=== PATIENT | female | born 1950 | race Asian ===

== ENCOUNTER 2016-10-19 11:39 | Inpatient (IN) | payer MEDICARE ==
--- NOTE | 2016-10-19 13:41 | ER Document Report ---
ED Medical Screen (RME) <ERNESTO ABBASI - Last Filed: 10/19/16 13:45> - General Mode of Arrival: Ambulatory Information source: Patient TRAVEL OUTSIDE OF THE [place] IN LAST 30 DAYS: No - HPI Patient complains to provider of: Dizziness Onset: This morning Associated Symptoms: Other - see notes above <DOE CHAO - Last Filed: 10/19/16 14:13> <KERRI RIBEIRO - Last Filed: 10/19/16 14:25> - General Chief Complaint: Bloody Stools Stated Complaint: FALL LEFT HIP PAIN/DIZZY Time Seen by Provider: 10/19/16 13:19 Notes: 66 year old female with history of anemia and blood transfusions presents to the ED complaining of dizziness, black stool, and rectal bleeding that started this morning. Patient denies any vaginal bleeding, but complains of left hip pain that radiates to the left leg secondary to a fall 2 weeks ago. Patient reports that these bleeding episodes occur once a year and often results in a hospitalization. I have greeted and performed a rapid initial assessment of this patient. A comprehensive ED assessment and evaluation of the patient, analysis of test results and completion of the medical decision making process will be conducted by additional ED providers. (DOE CHAO) - Related Data Allergies/Adverse Reactions: propoxyphene napsylate [From Darvocet-N 100] Allergy (Unknown, Verified 11:55) coffee (Coffea arabica) [Coffee] Adverse Reaction (Intermediate, Verified 11:55) vomitting Past Medical History - General Information source: Patient - Past Medical History Cardiac Medical History: Reports: Hx Heart Attack, Hx Hypercholesterolemia, Hx Hypertension, Other - Anemia and blood transfusions Pulmonary Medical History: Reports: Hx Bronchitis, Hx Pneumonia Denies: Hx Tuberculosis Neurological Medical History: Denies: Hx Seizures Endocrine Medical History: Reports: Hx Diabetes Mellitus Type 1, Hx Diabetes Mellitus Type 2 Renal/ Medical History: Denies: Hx Peritoneal Dialysis GI Medical History: Reports: Hx Gastritis, Other - GI bleeds Musculoskeltal Medical History: Reports Hx Arthritis Past Surgical History: Reports: Hx Appendectomy, Hx Cardiac Catheterization, Hx Hysterectomy, Hx Tonsillectomy, Hx Tubal Ligation - Immunizations Hx Diphtheria, Pertussis, Tetanus Vaccination: No <DOE CHAO - Last Filed: 10/19/16 14:13> Review of Systems - Review of Systems Constitutional: No symptoms reported EENT: No symptoms reported Cardiovascular: See HPI, Dizziness Respiratory: No symptoms reported Gastrointestinal: See HPI, Black stools, Rectal bleeding Genitourinary: No symptoms reported Female Genitourinary: No symptoms reported. denies: Vaginal bleeding Musculoskeletal: No symptoms reported Skin: No symptoms reported Hematologic/Lymphatic: No symptoms reported Neurological/Psychological: No symptoms reported -: Yes All other systems reviewed and negative <DOE CHAO - Last Filed: 10/19/16 14:13> Physical Exam - General General appearance: Alert In distress: None - HEENT Head: Normocephalic, Atraumatic Eyes: Normal Extraocular movements intact: Yes Pupils: PERRL - Respiratory Respiratory status: No respiratory distress - Skin Skin Temperature: Warm Skin Moisture: Dry Skin Color: Pale <DOE CHAO - Last Filed: 10/19/16 14:13> Course <ERNESTO ABBASI - Last Filed: 10/19/16 13:45> - Laboratory Result Diagrams: 10/19/16 13:32 10/19/16 13:32 <DOE CHAO - Last Filed: 10/19/16 14:13> - Laboratory Result Diagrams: 10/19/16 13:32 10/19/16 13:32 <KERRI RIBEIRO - Last Filed: 10/19/16 14:25> - Re-evaluation Re-evalutation: 10/19/16 14:25 I personally performed the services described in the documentation, reviewed and edited the documentation which was dictated to the scribe in my presence, and it accurately records my words and actions. (KERRI RIBEIRO) - Vital Signs Vital signs: Temp Pulse Resp BP Pulse Ox 98.5 F 97 124/56 L 100 10/19/16 11:58 10/19/16 11:58 10/19/16 11:58 10/19/16 14:09 - Laboratory Laboratory results interpreted by me: 10/19/16 10/19/16 13:32 13:32 Urine Glucose (UA) >=500 H Ur Leukocyte Esterase TRACE H Crossmatch See Detail Scribe Documentation - Scribe Written by Scribe:: Wily Broussard, 10/19/2016 1411 acting as scribe for :: Cesilia <DOE CHAO - Last Filed: 10/19/16 14:13>
[2016-10-19] MEDS ORDERED: NORMAL SALINE 250 ML IV PRN ×2 (13:49)
[2016-10-19 14:06] LABS: APPEARANCE,URINE SLIGHTLY-CLOUDY; BILIRUBIN,URINE NEGATIVE (NEGATIVE); GLUCOSE, URINE >=500 mg/dL (NEGATIVE); KETONES,URINE NEGATIVE (NEGATIVE); LEUKOCYTE ESTERASE,URINE TRACE (NEGATIVE); NITRITE,URINE NEGATIVE (NEGATIVE); PROTEIN,URINE NEGATIVE (NEGATIVE); URINE SPECIFIC GRAVITY 1.027; UROBILINOGEN,URINE NEGATIVE mg/dL (<2.0)
--- NOTE | 2016-10-19 14:10 | RADIOLOGY REPORT (SQ) ---
EXAM DESCRIPTION: PELVIS AP COMPLETED DATE/TIME: 10/19/2016 2:02 pm REASON FOR STUDY: fall, pain COMPARISON: None. NUMBER OF VIEWS: One view TECHNIQUE: AP Pelvis LIMITATIONS: None. FINDINGS: MINERALIZATION: Normal. HIPS: No acute fracture or dislocation. No worrisome bone lesions. PELVIS AND SACRUM: No acute fracture or dislocation. No worrisome bone lesions. PUBIS AND ISCHIUM: No acute fracture. LOWER LUMBAR SPINE: No significant findings as visualized. SOFT TISSUES: No findings. OTHER: No other significant finding. IMPRESSION: NEGATIVE STUDY OF THE PELVIS. TECHNICAL DOCUMENTATION: JOB ID: [id number] [employer]- All Rights Reserved
--- NOTE | 2016-10-19 14:12 | RADIOLOGY REPORT (SQ) ---
EXAM DESCRIPTION: CHEST PA/LAT COMPLETED DATE/TIME: 10/19/2016 2:02 pm REASON FOR STUDY: fall, pain COMPARISON: 09/02/2014. EXAM PARAMETERS: NUMBER OF VIEWS: two views TECHNIQUE: Digital Frontal and Lateral radiographic views of the chest acquired. RADIATION DOSE: NA LIMITATIONS: none FINDINGS: LUNGS AND PLEURA: No opacities, masses or pneumothorax. No pleural effusion. MEDIASTINUM AND HILAR STRUCTURES: Left paratracheal mass unchanged. HEART AND VASCULAR STRUCTURES: Heart normal size. No evidence for failure. BONES: No acute findings. HARDWARE: None in the chest. OTHER: No other significant finding. IMPRESSION: LEFT PARATRACHEAL MASS APPARENTLY DUE TO THYROMEGALY (PREVIOUS THYROID ULTRASOUND 2012). NO ACUTE RADIOGRAPHIC FINDING IN THE CHEST. TECHNICAL DOCUMENTATION: JOB ID: [id number] [employer]- All Rights Reserved
[2016-10-19 14:14] LABS: HEMATOCRIT 18.1 % (36.0-47.0); HGB HCT DIFFERENCE -1.9; MEAN CORPUSCULAR HEMOGLOBIN 22.9 pg (27.0-33.4); MEAN CORPUSCULAR HGB CONC 29.8 g/dL (32.0-36.0); MEAN CORPUSCULAR VOLUME 77 fl (80-97); RED BLOOD COUNT 2.35 10^6/uL (3.72-5.28); RED CELL DISTRIBUTION WIDTH 21.4 % (11.5-14.0); WHITE BLOOD COUNT 7.1 10^3/uL (4.0-10.5)
[2016-10-19 14:24] LABS: HEMOGLOBIN 5.4 g/dL (12.0-15.5)
[2016-10-19] MEDS ORDERED: PANTOPRAZOLE SODIUM 40 MG VIAL IV ONE ×2 (14:29→23:09)
[2016-10-19 14:31] LABS: ALANINE AMINOTRANSFERASE 18 U/L (9-52); ALBUMIN 3.8 g/dL (3.5-5.0); ALKALINE PHOSPHATASE 165 U/L (38-126); ANION GAP 14 (5-19); ASPARTATE AMINO TRANSFERASE 16 U/L (14-36); BILIRUBIN,DIRECT 0.3 mg/dL (0.0-0.4); BILIRUBIN,TOTAL 0.3 mg/dL (0.2-1.3); BLOOD UREA NITROGEN 15 mg/dL (7-20); CALCIUM 9.1 mg/dL (8.4-10.2); CARBON DIOXIDE 21 mmol/L (22-30); CHLORIDE 102 mmol/L (98-107); CREATINE KINASE 21 U/L (30-135); CREATININE RESULT 0.44 mg/dL (0.52-1.25); POTASSIUM 4.8 mmol/L (3.6-5.0); SODIUM 136.8 mmol/L (137-145); TOTAL PROTEIN 6.9 g/dL (6.3-8.2)
--- NOTE | 2016-10-19 14:38 | ER Document Report ---
ED GI Bleed / Rectal Pain <GEMADAVIDKERRI IRMA - Last Filed: 10/19/16 16:28> - General Mode of Arrival: Ambulatory Information source: Patient TRAVEL OUTSIDE OF THE [place] IN LAST 30 DAYS: No <LUISAERNESTO THIBODEAUX - Last Filed: 10/19/16 19:10> - General Chief Complaint: Bloody Stools Stated Complaint: FALL LEFT HIP PAIN/DIZZY Time Seen by Provider: 10/19/16 13:19 Notes: 66-year-old female with a history of upper and lower GI bleed, diabetes fell 3 weeks ago and she started taking ibuprofen 400 mg twice a day for about a week due to the left hip pain. She then started getting dizzy with black discoloration to her stools on Sunday., Same symptoms she had with GI bleed in 2012 and 2014. She has seen Dr. Strickland in the past 2014. She took insulin until 2010. She was given metformin when she was discharged from [facility] 2014 and she took that prescription for 1 month. Since she has no primary care provider she did not get the medication prescription refilled so she has untreated hyperglycemia. (ERNESTO ABBASI) - Related Data Allergies/Adverse Reactions: propoxyphene napsylate [From Darvocet-N 100] Allergy (Unknown, Verified 11:55) coffee (Coffea arabica) [Coffee] Adverse Reaction (Intermediate, Verified 11:55) vomitting Past Medical History - General Information source: Patient - Social History Smoking Status: Current Every Day Smoker Frequency of alcohol use: None Drug Abuse: None Lives with: Alone Family History: Reviewed & Not Pertinent Patient has suicidal ideation: No Patient has homicidal ideation: No - Past Medical History Cardiac Medical History: Reports: Hx Heart Attack, Hx Hypercholesterolemia, Hx Hypertension, Other - Anemia and blood transfusions Pulmonary Medical History: Reports: Hx Bronchitis, Hx Pneumonia Endocrine Medical History: Reports: Hx Diabetes Mellitus Type 1, Hx Diabetes Mellitus Type 2 Renal/ Medical History: Denies: Hx Peritoneal Dialysis GI Medical History: Reports: Hx Gastritis, Other - diverticula on colonoscopy, duodenal ulcer last 2014, GI bleeds Musculoskeltal Medical History: Reports Hx Arthritis Past Surgical History: Reports: Hx Abdominal Surgery, Hx Appendectomy, Hx Cardiac Catheterization, Hx Hysterectomy, Hx Tonsillectomy, Hx Tubal Ligation - Immunizations Hx Diphtheria, Pertussis, Tetanus Vaccination: No Hx Pneumococcal Vaccination: 02/22/13 <ERNESTO ABBASI - Last Filed: 10/19/16 19:10> Review of Systems - Review of Systems Constitutional: No symptoms reported EENT: No symptoms reported Cardiovascular: No symptoms reported Respiratory: No symptoms reported Gastrointestinal: See HPI Genitourinary: No symptoms reported Female Genitourinary: No symptoms reported Musculoskeletal: No symptoms reported Skin: No symptoms reported Hematologic/Lymphatic: No symptoms reported Neurological/Psychological: See HPI <ERNESTO ABBASI - Last Filed: 10/19/16 19:10> Physical Exam - Vital signs Interpretation: Normal - General General appearance: Appears well, Alert - HEENT Head: Normocephalic, Atraumatic Eyes: Normal Conjunctiva: Normal Pupils: PERRL Pharynx: Normal Neck: Supple - Respiratory Respiratory status: No respiratory distress Chest status: Nontender Breath sounds: Normal Chest palpation: Normal - Cardiovascular Rhythm: Regular Heart sounds: Normal auscultation Murmur: No - Abdominal Inspection: Normal Distension: No distension Bowel sounds: Normal Tenderness: Nontender. No: Tender Organomegaly: No organomegaly - Rectal Stool: Heme positive. No: Black - Back Back: Normal, Nontender. No: CVA tenderness - Extremities General upper extremity: Normal inspection, Nontender, Normal color, Normal ROM , Normal temperature General lower extremity: Normal inspection, Nontender, Normal color, Normal ROM , Normal temperature, Normal weight bearing. No: Leelee's sign - Neurological Neuro grossly intact: Yes Cognition: Normal Orientation: AAOx4 [place] Coma Scale Eye Opening: Spontaneous [place] Coma Scale Verbal: Oriented [place] Coma Scale Motor: Obeys Commands Radhika Coma Scale Total: 15 Speech: Normal Motor strength normal: LUE, RUE, LLE, RLE Sensory: Normal - Psychological Associated symptoms: Normal affect, Normal mood - Skin Skin Temperature: Warm Skin Moisture: Dry Skin Color: Normal <ERNESTO ABBASI - Last Filed: 10/19/16 19:10> - Vital signs Vitals: Temp Pulse BP Pulse Ox 98.5 F 97 124/56 L 100 10/19/16 11:58 10/19/16 11:58 10/19/16 11:58 10/19/16 11:58 Course - Laboratory Result Diagrams: 10/19/16 13:32 10/19/16 13:32 <KERRI RIBEIRO - Last Filed: 10/19/16 16:28> - Laboratory Result Diagrams: 10/19/16 13:32 10/19/16 13:32 <ERNESTO ABBASI - Last Filed: 10/19/16 19:10> - Re-evaluation Re-evalutation: 10/19/16 14:34 dr. genao has seen the pt for upper gi bleed, ulcers in the past. I called to see if he would be willing to see the pt as consult with hosptiatlist admission , he said he is not chemical production technician for the ER tonight and would not be able to see her if she bleeds during the night. He will not consult. 10/19/16 14:[address] Shahid [facility], her glucose is 463. does not take any meds. glucose was 512 1 year ago when she was transferred to [facility] for lower gi bleed. Will order 1 L of name normal saline and will most likely need to be a hospitalist admit in [place] with a GI consult. xrays are negative 10/19/16 15:16 dr. go hospitalist at [facility] will accept the pt. Wants her to have 1 unit PRBC infused before the transport. Also add a lactic acid per her request. 10/19/16 15:26 dr. ribeiro has seen the pt. and signed the EMTALA. 10/19/16 17:45 [facility] again and they do not have a PICU bed yet the patient is almost on her first blood transfusion and another IV was started to Protonix 8 mg an hour IV infusion. 10/19/16 18:36 accucheck 189, lacitic acid 0.9 normal 10/19/16 18:46 pt eating apple sauce, 2nd prbc infusing 10/19/16 19:10 care transferred to Rigoberto [facility]. pt still waiting for bed assignment at [facility] PCU (ERNESTO ABBASI) - Vital Signs Vital signs: Temp Pulse Resp BP Pulse Ox 98.9 F 94 18 124/79 100 10/19/16 18:58 10/19/16 15:31 10/19/16 18:56 10/19/16 18:56 10/19/16 18:56 - Laboratory Laboratory results interpreted by me: 10/19/16 10/19/16 10/19/16 13:32 13:32 13:32 RBC 2.35 L Hgb 5.4 L Hct 18.1 L MCV 77 L MCH 22.9 L MCHC 29.8 L RDW 21.4 H Sodium 136.8 L Carbon Dioxide 21 L Creatinine 0.44 L Glucose 463 H* POC Glucose Alkaline Phosphatase 165 H Creatine Kinase 21 L Urine Glucose (UA) Ur Leukocyte Esterase Crossmatch See Detail 10/19/16 10/19/16 13:32 18:14 RBC Hgb Hct MCV MCH MCHC RDW Sodium Carbon Dioxide Creatinine Glucose POC Glucose 189 H Alkaline Phosphatase Creatine Kinase Urine Glucose (UA) >=500 H Ur Leukocyte Esterase TRACE H Crossmatch Discharge <KERRI RIBEIRO - Last Filed: 10/19/16 16:28> <ERNESTO ABBASI - Last Filed: 10/19/16 19:10> - Discharge Clinical Impression: Upper GI bleed Anemia Qualifiers: Anemia type: unspecified type Qualified Code(s): D64.9 - Anemia, unspecified
[2016-10-19 14:40] LABS: GLUCOSE 463 mg/dL (75-110)
[2016-10-19] MEDS ORDERED: NORMAL SALINE 1000 ML 1,000 ML IV ONE (14:44)
[2016-10-19 14:47] LABS: CREATINE KINASE MB < 0.22 ng/mL (<4.55); TROPONIN I < 0.012 ng/mL
[2016-10-19 15:04] LABS: BASOPHILS % (MANUAL) 0 % (0-2); EOSINOPHILS % (MANUAL) 1 % (0-6); LYMPHOCYTES % (MANUAL) 20 % (13-45); TOTAL CELLS COUNTED 100; TOXIC GRANULATION SLIGHT; TOXIC VACUOLATION PRESENT
[2016-10-19 15:06] LABS: ANISOCYTOSIS 2+; HYPOCHROMASIA 2+; OVALOCYTES 2+; POIKILOCYTOSIS 2+; POLYCHROMASIA SLIGHT; ROULEAUX SLIGHT
[2016-10-19] MEDS ORDERED: INSULIN REG, HUMAN 100 UNIT/ML 3 ML VIAL (PYX) SUBCUT ONE (15:20)
[2016-10-19] MEDS: PANTOPRAZOLE SODIUM 40 MG VIAL IV PRN (17:58)
[2016-10-19 21:29] LABS: ABSOLUTE BASOPHILS # (AUTO) 0.1 10^3/uL (0.0-0.2); ABSOLUTE EOSINOPHILS # (AUTO) 0.1 10^3/uL (0.0-0.6); ABSOLUTE LYMPHOCYTES (AUTO) 2.7 10^3/uL (0.5-4.7); ABSOLUTE MONOCYTES (AUTO) 0.6 10^3/uL (0.1-1.4); ABSOLUTE NEUT (AUTO) 4.8 10^3/uL (1.7-8.2); BASOPHILS % (AUTO) 1.2 % (0-2); HEMATOCRIT 25.5 % (36.0-47.0); HGB HCT DIFFERENCE -1.5; LYMPHOCYTES % (AUTO) 33.1 % (13-45); MEAN CORPUSCULAR HEMOGLOBIN 24.6 pg (27.0-33.4); MEAN CORPUSCULAR HGB CONC 31.3 g/dL (32.0-36.0); MEAN CORPUSCULAR VOLUME 79 fl (80-97); MONOCYTES % (AUTO) 6.8 % (3-13); RED BLOOD COUNT 3.23 10^6/uL (3.72-5.28); RED CELL DISTRIBUTION WIDTH 19.2 % (11.5-14.0); SEGMENTED NEUTROPHILS % (AUTO) 57.9 % (42-78); WHITE BLOOD COUNT 8.2 10^3/uL (4.0-10.5)
--- NOTE | 2016-10-19 22:31 | EKG REPORT ---
SEVERITY:- ABNORMAL ECG - SINUS RHYTHM ABNRM R PROG, CONSIDER ASMI OR LEAD PLACEMENT : Confirmed by: Deidre Hogan 19-Oct-2016 22:31:06
[2016-10-20] MEDS ORDERED: NORMAL SALINE 1000 ML 1,000 ML IV PRN ×2 (05:32→08:39)
[2016-10-20] MEDS: PANTOPRAZOLE SODIUM 40 MG VIAL IV PRN (05:46)
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
[2016-10-20] MEDS ORDERED: ACETAMINOPHEN 325 MG TABLET PO PRN (08:31)
[2016-10-20] MEDS ORDERED: ONDANSETRON HCL INJ/PF 4 MG/2 ML SDV IV PRN (08:31)
[2016-10-20] MEDS ORDERED: DEXTROSE 40% GEL 15 GM TUBE PO PRN ×2 (08:31)
[2016-10-20] MEDS ORDERED: GLUCAGON,HUMAN RECOMB 1 MG INJ SUBCUT PRN (08:31)
[2016-10-20] MEDS ORDERED: DEXTROSE 50%-WATER 25 GM/50 ML DISP.SYRIN IV PRN ×2 (08:31)
[2016-10-20 08:37] LABS: HEMATOCRIT 24.6 % (36.0-47.0); HGB HCT DIFFERENCE -1.8; MEAN CORPUSCULAR HEMOGLOBIN 24.7 pg (27.0-33.4); MEAN CORPUSCULAR HGB CONC 31.1 g/dL (32.0-36.0); MEAN CORPUSCULAR VOLUME 79 fl (80-97); RED CELL DISTRIBUTION WIDTH 19.6 % (11.5-14.0); WHITE BLOOD COUNT 6.5 10^3/uL (4.0-10.5)
[2016-10-20] MEDS ORDERED: PANTOPRAZOLE SODIUM 40 MG VIAL IV PRN (08:39)
[2016-10-20] MEDS ORDERED: FUROSEMIDE INJ/PF 40 MG/4 ML SDV IV PRN (08:42)
[2016-10-20 08:44] LABS: HEMOGLOBIN 7.6 g/dL (12.0-15.5)
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
[2016-10-20 10:02] LABS: ANION GAP 12 (5-19); BLOOD UREA NITROGEN 10 mg/dL (7-20); CALCIUM 8.7 mg/dL (8.4-10.2); CARBON DIOXIDE 18 mmol/L (22-30); CHLORIDE 109 mmol/L (98-107); CREATININE RESULT 0.44 mg/dL (0.52-1.25); GLUCOSE 163 mg/dL (75-110); POTASSIUM 4.1 mmol/L (3.6-5.0); SODIUM 138.8 mmol/L (137-145)
[2016-10-20] MEDS ORDERED: ONDANSETRON HCL INJ/PF 4 MG/2 ML SDV ONE (11:39)
[2016-10-20] MEDS ORDERED: NALOXONE HCL INJ/PF 0.4 MG/1 ML SDV ONE (11:40)
[2016-10-20] MEDS ORDERED: FLUMAZENIL INJ 0.5 MG/5 ML VIAL IV ONE (11:40)
[2016-10-20] MEDS ORDERED: GLYCOPYRROLATE INJ 0.4 MG/2 ML VIAL ONE (11:40)
[2016-10-20] MEDS ORDERED: EPINEPHRINE INJ 1 MG/10 ML DISP.SYRIN ONE (11:41)
[2016-10-20] MEDS ORDERED: GLUCAGON,HUMAN RECOMB 1 MG INJ ONE (11:41)
[2016-10-20] MEDS: MIDAZOLAM 2 MG/2 ML INJ ONE ×2 (13:10→13:16)
[2016-10-20] MEDS: FENTANYL CITRATE INJ/PF 100 MCG/2 ML AMPUL ONE ×2 (13:13→13:22)
--- NOTE | 2016-10-20 13:37 | Operative Report ---
Operative Report DATE OF SURGERY: 10/20/16 PREOPERATIVE DIAGNOSIS: Gastrointestinal bleed; history of duodenal ulcer POSTOPERATIVE DIAGNOSIS: 1. 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 2. Mild gastritis. 3. No active bleeding, clots identified OPERATION: 1. Esophagogastroduodenoscopy. 2. Mucosal biopsy gastric antrum for HOOD testing SURGEON: LETITIA WILDER ANESTHESIA: Moderate Sedation TISSUE REMOVED OR ALTERED: Mucosal biopsy COMPLICATIONS: None ESTIMATED BLOOD LOSS: None INTRAOPERATIVE FINDINGS: See below PROCEDURE: Patient was taken to the endoscopy suite for for [facility] where she was placed in a semirecumbent position. A second IV was initiated and IV conscious sedation was initiated. Surgical plan and surgical timeout conducted. Oral mouthpiece inserted, hypopharynx anesthetized, the flexible adult endoscope was advanced to the oropharynx, down the esophagus, into the stomach and then the duodenum. Patient tolerated this very well. Of note she was hypertensive during the procedure. The duodenum was unremarkable except for 3 or 4 very small nonbleeding AVMs. Photos were taken. There was no evidence of tumor stricture bleeding or ulcer in the duodenum. The scope was carefully brought back to the pylorus several times and again no evidence of ulceration bleeding stricture in this area. The stomach was grossly unremarkable. A random antral biopsy was taken with cold forceps device for HOOD testing There is no evidence of tumor stricture bleeding or polyp in the stomach The scope was brought back to the GE junction. The GE junction was at approximately 38 cm from the incisor. There is no evidence of distal esophagitis stricture or any other pathology. Scope was brought back to the rest the esophagus which was unremarkable. Patient procedure well. Scope was withdrawn. She remained hemodynamically stable. She will resume clear liquid diet and preoperative medications.
[2016-10-20] MEDS: DOCUSATE SODIUM 100 MG CAPSULE PO SCH ×2 (15:23→17:38)
[2016-10-20] MEDS: CEFTRIAXONE 1 GM/D5W RTU 50 ML IV SCH (15:23)
[2016-10-20] MEDS: NORMAL SALINE 100 ML with PANTOPRAZOLE SODIUM 80 MG IV PRN ×6 (15:24→23:19)
[2016-10-20 17:31] LABS: ABSOLUTE BASOPHILS # (AUTO) 0.1 10^3/uL (0.0-0.2); ABSOLUTE LYMPHOCYTES (AUTO) 1.8 10^3/uL (0.5-4.7); ABSOLUTE MONOCYTES (AUTO) 0.4 10^3/uL (0.1-1.4); ABSOLUTE NEUT (AUTO) 4.3 10^3/uL (1.7-8.2); EOSINOPHILS % (AUTO) 0.6 % (0-6); HEMOGLOBIN 9.1 g/dL (12.0-15.5); HGB HCT DIFFERENCE -1.7; LYMPHOCYTES % (AUTO) 26.7 % (13-45); MEAN CORPUSCULAR HEMOGLOBIN 25.2 pg (27.0-33.4); MEAN CORPUSCULAR HGB CONC 31.5 g/dL (32.0-36.0); MEAN CORPUSCULAR VOLUME 80 fl (80-97); RED BLOOD COUNT 3.63 10^6/uL (3.72-5.28); RED CELL DISTRIBUTION WIDTH 19.2 % (11.5-14.0); SEGMENTED NEUTROPHILS % (AUTO) 64.7 % (42-78); WHITE BLOOD COUNT 6.6 10^3/uL (4.0-10.5)
[2016-10-20] MEDS: INSULIN REG, HUMAN 100 UNIT/ML 3 ML VIAL (PYX) SUBCUT PRN ×2 (19:26→23:18)
[2016-10-20 21:00] LABS: HEMATOCRIT 25.8 % (36.0-47.0); HEMOGLOBIN 8.1 g/dL (12.0-15.5); HGB HCT DIFFERENCE -1.5; MEAN CORPUSCULAR HEMOGLOBIN 24.8 pg (27.0-33.4); MEAN CORPUSCULAR HGB CONC 31.5 g/dL (32.0-36.0); MEAN CORPUSCULAR VOLUME 79 fl (80-97); RED BLOOD COUNT 3.27 10^6/uL (3.72-5.28); RED CELL DISTRIBUTION WIDTH 19.2 % (11.5-14.0); WHITE BLOOD COUNT 5.9 10^3/uL (4.0-10.5)
[2016-10-21 01:06] LABS: HEMATOCRIT 25.5 % (36.0-47.0); HGB HCT DIFFERENCE -1.8; MEAN CORPUSCULAR HEMOGLOBIN 24.9 pg (27.0-33.4); MEAN CORPUSCULAR VOLUME 80 fl (80-97); RED BLOOD COUNT 3.17 10^6/uL (3.72-5.28); RED CELL DISTRIBUTION WIDTH 18.6 % (11.5-14.0); WHITE BLOOD COUNT 5.5 10^3/uL (4.0-10.5)
[2016-10-21 01:11] LABS: HEMOGLOBIN 7.9 g/dL (12.0-15.5)
[2016-10-21 06:52] LABS: HEMATOCRIT 25.8 % (36.0-47.0); HEMOGLOBIN 8.3 g/dL (12.0-15.5); HGB HCT DIFFERENCE -0.9; MEAN CORPUSCULAR HEMOGLOBIN 25.3 pg (27.0-33.4); MEAN CORPUSCULAR VOLUME 79 fl (80-97); RED BLOOD COUNT 3.27 10^6/uL (3.72-5.28); RED CELL DISTRIBUTION WIDTH 19.2 % (11.5-14.0); WHITE BLOOD COUNT 5.2 10^3/uL (4.0-10.5)
[2016-10-21 07:09] LABS: ANION GAP 11 (5-19); BLOOD UREA NITROGEN 6 mg/dL (7-20); CALCIUM 8.4 mg/dL (8.4-10.2); CARBON DIOXIDE 19 mmol/L (22-30); CHLORIDE 112 mmol/L (98-107); CREATININE RESULT 0.42 mg/dL (0.52-1.25); GLUCOSE 180 mg/dL (75-110); SODIUM 142.1 mmol/L (137-145)
[2016-10-21] MEDS: DOCUSATE SODIUM 100 MG CAPSULE PO SCH (09:03)
[2016-10-21] MEDS: CEFTRIAXONE 1 GM/D5W RTU 50 ML IV SCH (09:03)
[2016-10-21] MEDS: INSULIN REG, HUMAN 100 UNIT/ML 3 ML VIAL (PYX) SUBCUT PRN ×2 (09:05→12:08)
--- NOTE | 2016-10-21 09:23 | PROGRESS NOTE E ---
Progress Note NAME: ASIA LOZOYA : 1950 AGE: 66Y DATE: 10/21/2016 ROOM: 401 SUBJECTIVE: This morning the patient denies any pain and no abdominal tenderness. She is tolerating clear liquids well. Her hemoglobin is stable at 8.3. The white count is normal at 5.2. She is asking to increase her diet. PLAN: I just ordered a bland diet for her and possibly could be discharged soon. Continue her on antacid regimen and follow up with a hemoglobin in about a week or 2. DICTATING PHYSICIAN: TRISTAN KIRKPATRICK M.D. [id number] PHY#: [id number] ID: [id number] JOB#: [id number] ACCT: [id number] cc: >
[2016-10-21 12:22] VITALS: BP 149/65
[2016-10-21] MEDS ORDERED: INSULIN REG, HUMAN 100 UNIT/ML 3 ML VIAL (PYX) SUBCUT ONE (13:00)
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
[2016-10-21] MEDS ORDERED: LANSOPRAZOLE 30 MG TAB.RAP.DR PO SCH (17:00)
== END 2016-10-21 15:38 | disposition home or self-care (01) | DRG 378 ==
LOC: ER 11:39 → EH 10-20 08:22 → OBSVTOIN 10-20 08:31 → 4N 10-20 10:01
PROC: 30233N1 Transfusion of Nonautologous Red Blood Cells into Peripheral Vein, Percutaneous Approach (ICD-10-PCS; 2016-10-19)
PROC: 30233N1 Transfusion of Nonautologous Red Blood Cells into Peripheral Vein, Percutaneous Approach (ICD-10-PCS; 2016-10-20)
PROC: 0DB68ZX Excision of Stomach, Via Natural or Artificial Opening Endoscopic, Diagnostic (ICD-10-PCS; principal; 2016-10-20 13:00)
DX: K31.811 Angiodysplasia of stomach and duodenum with bleeding (principal); N39.0 Urinary tract infection, site not specified; D50.9 Iron deficiency anemia, unspecified; E11.9 Type 2 diabetes mellitus without complications; K25.7 Chronic gastric ulcer without hemorrhage or perforation; I10 Essential (primary) hypertension; E78.5 Hyperlipidemia, unspecified; M19.90 Unspecified osteoarthritis, unspecified site; Z79.899 Other long term (current) drug therapy; F17.200 Nicotine dependence, unspecified, uncomplicated; I25.2 Old myocardial infarction; Z90.710 Acquired absence of both cervix and uterus; Z88.8 Allergy status to other drugs, medicaments and biological substances
CPT/HCPCS: 36415; 36430; 43239; 71020; 72170; 80048; 80053; 81001; 82272; 82550; 82553; 82962; 83036; 83605; 84484; 85025; 85027; 86850; 86900; 86901; 86920; 87086; 87088; 87186; 88305; 88342; 93005; 93010; 96361; 96374; 96376; 99285; J0171; J0696; J1610; J1815; J2250; J2310; J2405; J3010; J3490; J7030; P9016; S0164

== ENCOUNTER 2017-01-25 12:02 | Emergency (ER) | payer MEDICARE ==
--- NOTE | 2017-01-25 12:30 | ER Document Report ---
ED Medical Screen (RME) - General Chief Complaint: Dizziness Stated Complaint: DIZZINESS Time Seen by Provider: 01/25/17 12:27 Notes: Patient states that she has been dizzy for about 1 week. She states she has been feeling lightheaded. She states she has a history of anemia and has been transfused approximately 5 times. She states recently she has had black tarry stool. She has had tarry stools in the past. TRAVEL OUTSIDE OF THE [place] IN LAST 30 DAYS: No - Related Data Allergies/Adverse Reactions: propoxyphene napsylate [From Darvocet-N 100] Allergy (Unknown, Verified 11:55) coffee (Coffea arabica) [Coffee] Adverse Reaction (Intermediate, Verified 11:55) vomitting Past Medical History - Social History Chew tobacco use (# tins/day): No Frequency of alcohol use: Rare Drug Abuse: None - Past Medical History Cardiac Medical History: Reports: Hx Heart Attack, Hx Hypercholesterolemia, Hx Hypertension Pulmonary Medical History: Reports: Hx Bronchitis, Hx Pneumonia Denies: Hx Tuberculosis Neurological Medical History: Denies: Hx Seizures Endocrine Medical History: Reports: Hx Diabetes Mellitus Type 1, Hx Diabetes Mellitus Type 2 Renal/ Medical History: Denies: Hx Peritoneal Dialysis GI Medical History: Reports: Hx Gastritis Musculoskeltal Medical History: Reports Hx Arthritis Past Surgical History: Reports: Hx Abdominal Surgery, Hx Appendectomy, Hx Cardiac Catheterization, Hx Hysterectomy, Hx Tonsillectomy - adnoids, Hx Tubal Ligation - Immunizations Hx Diphtheria, Pertussis, Tetanus Vaccination: No Physical Exam - Vital signs Vitals: Temp Pulse Resp BP Pulse Ox 98.7 F 106 H 20 114/59 L 100 01/25/17 12:11 01/25/17 12:11 01/25/17 12:11 01/25/17 12:11 01/25/17 12:11 Course - Vital Signs Vital signs: Temp Pulse Resp BP Pulse Ox 98.7 F 106 H 20 114/59 L 100 01/25/17 12:11 01/25/17 12:11 01/25/17 12:11 01/25/17 12:11 01/25/17 12:11
[2017-01-25 13:30] LABS: APPEARANCE,URINE SLIGHTLY-CLOUDY; BILIRUBIN,URINE NEGATIVE (NEGATIVE); GLUCOSE, URINE >=500 mg/dL (NEGATIVE); KETONES,URINE 20 mg/dL (NEGATIVE); LEUKOCYTE ESTERASE,URINE NEGATIVE (NEGATIVE); NITRITE,URINE NEGATIVE (NEGATIVE); PROTEIN,URINE NEGATIVE (NEGATIVE); URINE SPECIFIC GRAVITY 1.025; UROBILINOGEN,URINE NEGATIVE mg/dL (<2.0)
[2017-01-25 14:34] LABS: HEMATOCRIT 15.7 % (36.0-47.0); MEAN CORPUSCULAR HEMOGLOBIN 23.5 pg (27.0-33.4); MEAN CORPUSCULAR HGB CONC 31.4 g/dL (32.0-36.0); MEAN CORPUSCULAR VOLUME 75 fl (80-97); RED CELL DISTRIBUTION WIDTH 20.1 % (11.5-14.0); WHITE BLOOD COUNT 8.5 10^3/uL (4.0-10.5)
[2017-01-25 14:42] LABS: ALANINE AMINOTRANSFERASE 25 U/L (9-52); ALBUMIN 4.1 g/dL (3.5-5.0); ALKALINE PHOSPHATASE 194 U/L (38-126); ANION GAP 15 (5-19); ASPARTATE AMINO TRANSFERASE 14 U/L (14-36); BILIRUBIN,DIRECT 0.2 mg/dL (0.0-0.4); BILIRUBIN,TOTAL 0.2 mg/dL (0.2-1.3); BLOOD UREA NITROGEN 19 mg/dL (7-20); CALCIUM 9.7 mg/dL (8.4-10.2); CARBON DIOXIDE 17 mmol/L (22-30); CHLORIDE 100 mmol/L (98-107); POTASSIUM 5.1 mmol/L (3.6-5.0); SODIUM 132.4 mmol/L (137-145); TOTAL PROTEIN 7.2 g/dL (6.3-8.2)
[2017-01-25 14:52] LABS: GLUCOSE 470 mg/dL (75-110)
[2017-01-25] MEDS ORDERED: NORMAL SALINE 1000 ML 1,000 ML IV ONE (14:58)
[2017-01-25] MEDS ORDERED: INSULIN REG, HUMAN 100 UNIT/ML 3 ML VIAL (PYX) IM ONE (14:59)
[2017-01-25] MEDS ORDERED: NORMAL SALINE 250 ML IV PRN (14:59)
[2017-01-25] MEDS ORDERED: PANTOPRAZOLE SODIUM 40 MG VIAL IV ONE (14:59)
[2017-01-25] MEDS ORDERED: PANTOPRAZOLE SODIUM 40 MG VIAL IV PRN (15:01)
[2017-01-25 15:26] LABS: BASOPHILS % (MANUAL) 0 % (0-2); EOSINOPHILS % (MANUAL) 0 % (0-6); LYMPHOCYTES % (MANUAL) 20 % (13-45); TOTAL CELLS COUNTED 100; TOXIC GRANULATION SLIGHT; TOXIC VACUOLATION PRESENT
[2017-01-25 15:29] LABS: ANISOCYTOSIS 2+; HYPOCHROMASIA 2+; MICROCYTOSIS 1+; OVALOCYTES 1+; POIKILOCYTOSIS SLIGHT; POLYCHROMASIA SLIGHT; TARGET CELLS SLIGHT; TEAR DROP CELLS SLIGHT
[2017-01-25] MEDS ORDERED: ONDANSETRON HCL INJ/PF 4 MG/2 ML SDV IV ONE (15:48)
[2017-01-25 15:52] LABS: HEMOGLOBIN 4.9 g/dL (12.0-15.5)
[2017-01-25 15:57] LABS: ARTERIAL BLOOD BASE EXCESS -4.1 mmol/L; ARTERIAL BLOOD O2 SATURATION 98.4 % (94-98)
--- NOTE | 2017-01-25 16:33 | ER Document Report ---
ED Dizziness/Weakness - General Mode of Arrival: Medic Information source: Patient, Relative TRAVEL OUTSIDE OF THE [place] IN LAST 30 DAYS: No <RUSS JOSEPH - Last Filed: 01/25/17 17:57> <ANTHONY URENA - Last Filed: 01/25/17 20:27> - General Chief Complaint: Dizziness Stated Complaint: DIZZINESS Time Seen by Provider: 01/25/17 12:27 Notes: Patient is a 66-year-old female who presents to the ER today for dark and tarry stools, dizziness 1 week. She Admits to some upper abdominal pain. She has a history of upper GI bleeds, gastric ulcers in the past having to have blood transfusions. She denies any vomiting but admits to some nausea. Patient is a diabetic and also has not had any of her medication because she has not had insurance to go to the doctor.She has not checked her sugar. ( RUSS JOSEPH) - Related Data Allergies/Adverse Reactions: propoxyphene napsylate [From Darvocet-N 100] Allergy (Unknown, Verified 11:55) coffee (Coffea arabica) [Coffee] Adverse Reaction (Intermediate, Verified 11:55) vomitting Past Medical History - Social History Smoking Status: Current Every Day Smoker Chew tobacco use (# tins/day): No Frequency of alcohol use: Rare Drug Abuse: None Family History: CAD, CVA, Hypertension Patient has suicidal ideation: No Patient has homicidal ideation: No - Past Medical History Cardiac Medical History: Reports: Hx Heart Attack, Hx Hypercholesterolemia, Hx Hypertension Pulmonary Medical History: Reports: Hx Bronchitis, Hx Pneumonia Denies: Hx Tuberculosis Neurological Medical History: Denies: Hx Seizures Endocrine Medical History: Reports: Hx Diabetes Mellitus Type 1, Hx Diabetes Mellitus Type 2 Renal/ Medical History: Denies: Hx Peritoneal Dialysis GI Medical History: Reports: Hx Gastritis Musculoskeltal Medical History: Reports Hx Arthritis Past Surgical History: Reports: Hx Abdominal Surgery, Hx Appendectomy, Hx Cardiac Catheterization, Hx Hysterectomy, Hx Tonsillectomy - adnoids, Hx Tubal Ligation - Immunizations Hx Diphtheria, Pertussis, Tetanus Vaccination: No Hx Pneumococcal Vaccination: 02/22/13 <RUSS JOSEPH - Last Filed: 01/25/17 17:57> - Vital signs Vitals: Temp Pulse Resp BP Pulse Ox 98.7 F 106 H 20 114/59 L 100 01/25/17 12:11 01/25/17 12:11 01/25/17 12:11 01/25/17 12:11 01/25/17 12:11 Course - Laboratory Result Diagrams: 01/25/17 14:07 01/25/17 14:07 <RUSS JOSEPH - Last Filed: 01/25/17 17:57> - Laboratory Result Diagrams: 01/25/17 14:07 01/25/17 14:07 <ANTHONY URENA - Last Filed: 01/25/17 20:27> - Re-evaluation Re-evalutation: 01/25/17 16:31 Dr. Thayer accepts pt for transfer to [facility] at this time for upper GI bleed and mild case of DKA. Patient has a hemoglobin of 4.9, stool occult was positive. Protonix, IV fluids, 2 units of packed red blood cells ordered at this time. Patient has a mildly elevated osmolality with a blood glucose of 470. Insulin was administered, 12 units. ABG has a pH of 7.48 and a PO2 of 109. (RUSS JOSEPH) 01/25/17 20:15 EMS here to transport patient. No current complaints. Vital signs stable. Stable for transport. (ANTHONY URENA) - Vital Signs Vital signs: Temp Pulse Resp BP Pulse Ox 99.0 F 93 20 150/78 H 100 01/25/17 19:55 01/25/17 19:55 01/25/17 19:55 01/25/17 19:55 01/25/17 19:55 - Laboratory Laboratory results interpreted by me: 01/25/17 01/25/17 01/25/17 13:11 14:07 14:07 RBC 2.10 L Hgb 4.9 L* Hct 15.7 L MCV 75 L MCH 23.5 L MCHC 31.4 L RDW 20.1 H Carbonic Acid ABG pH ABG pCO2 ABG pO2 ABG HCO3 ABG Total CO2 ABG O2 Saturation Sodium 132.4 L Potassium 5.1 H Carbon Dioxide 17 L Creatinine 0.50 L Glucose 470 H* POC Glucose Serum Osmolality Alkaline Phosphatase 194 H Urine Glucose (UA) >=500 H Urine Ketones 20 H Crossmatch 01/25/17 01/25/17 01/25/17 14:07 14:07 15:40 RBC Hgb Hct MCV MCH MCHC RDW Carbonic Acid 0.80 L ABG pH 7.48 H ABG pCO2 26.6 L ABG pO2 109.1 H ABG HCO3 19.2 L ABG Total CO2 20.0 L ABG O2 Saturation 98.4 H Sodium Potassium Carbon Dioxide Creatinine Glucose POC Glucose Serum Osmolality 302 H Alkaline Phosphatase Urine Glucose (UA) Urine Ketones Crossmatch See Detail 01/25/17 18:42 RBC Hgb Hct MCV MCH MCHC RDW Carbonic Acid ABG pH ABG pCO2 ABG pO2 ABG HCO3 ABG Total CO2 ABG O2 Saturation Sodium Potassium Carbon Dioxide Creatinine Glucose POC Glucose 154 H Serum Osmolality Alkaline Phosphatase Urine Glucose (UA) Urine Ketones Crossmatch Discharge <RUSS JOSEPH - Last Filed: 01/25/17 17:57> <ANTHONY URENA - Last Filed: 01/25/17 20:27> - Discharge Clinical Impression: Upper GI bleed Anemia Qualifiers: Anemia type: unspecified type Qualified Code(s): D64.9 - Anemia, unspecified Diabetes mellitus Qualifiers: Diabetes mellitus type: type 2 Diabetes mellitus complication status: with unspecified complications Diabetes mellitus stars analytical lead insulin use: without stars analytical lead use Qualified Code(s): E11.8 - Type 2 diabetes mellitus with unspecified complications Condition: Stable Disposition: [facility]
[2017-01-25] MEDS ORDERED: NORMAL SALINE 1000 ML 1,000 ML IV PRN (18:04)
[2017-01-25 19:56] VITALS: BP 150/78
[2017-01-26 14:20] LABS: PATH REVIEW PATHOLOGIST REVIEWED
== END 2017-01-25 19:55 | disposition short-term general hospital (02) ==
LOC: ER 12:02
DX: K92.2 Gastrointestinal hemorrhage, unspecified (principal); D64.9 Anemia, unspecified; E13.10 Other specified diabetes mellitus with ketoacidosis without coma; T50.906A Underdosing of unspecified drugs, medicaments and biological substances, initial encounter; Z91.120 Patient's intentional underdosing of medication regimen due to financial hardship; Z91.14 Patient's other noncompliance with medication regimen; R42 Dizziness and giddiness; R10.10 Upper abdominal pain, unspecified; R11.0 Nausea; I10 Essential (primary) hypertension; I25.2 Old myocardial infarction; F17.200 Nicotine dependence, unspecified, uncomplicated; Z88.5 Allergy status to narcotic agent; Z87.11 Personal history of peptic ulcer disease; Z90.49 Acquired absence of other specified parts of digestive tract
CPT/HCPCS: 99284; 96361; 96374; 86900; 86901; 36415; 36430; 86850; 82962; 82803; 83930; 85025; 82272; 80053; 81001; 86920; 36600; P9016; A9270; J2405; J7030; J1815; S0164

== ENCOUNTER → 2017-06-12 | Outpatient (CLI) | payer MEDICARE, MEDICAID ==
--- NOTE | 2017-06-12 16:36 | WOMENS IMAGING REPORT ---
EXAM DESCRIPTION: BILAT SCREENING MAMMO W/CAD COMPLETED DATE/TIME: 06/12/2017 2:08 pm REASON FOR STUDY: ROUTINE SCREENING; Z12.31 Z12.31 ENCNTR SCREEN MAMMOGRAM FOR MALIGNANT NEOPLASM O F BEN COMPARISON: None. TECHNIQUE: Standard craniocaudal and mediolateral oblique views of each breast recorded using Predictviaa l acquisition. LIMITATIONS: None. FINDINGS: Findings present which are benign by mammographic criteria. No suspicious masses, calcifi cations or architectural distortion. Pertinent benign findings: Benign bilateral breast parenchymal calcifications are present Read with the assistance of CAD. .[facility] - R2 Cenova Version 1.3 .[facility] Imaging - R2 Cenova Version 1.3 .[facility] - R2 Cenova Version 2.4 [place] [place] Cenova Version 2.4 .[facility] - R2 [employer] Version 9.2 Benign mammographic findings may include one or more of the following: Smooth masses, popcorn/rim/co arse calcifications, asymmetries, post-procedure changes, and lesions with long-standing stability. IMPRESSION: BENIGN MAMMOGRAPHIC FINDINGS. BIRADS 2 BREAST DENSITY: b. There are scattered areas of fibroglandular density. BIRAD: 2 BENIGN FINDING(S) RECOMMENDATION: ROUTINE SCREENING Please consider bilateral screening tomosynthesis in June 2018 COMMENT: The patient has been notified of the results by letter per MQSA requirements. Additional no tification policies are in place for contacting patient with suspicious or incomplete findings. Quality ID #[id number]: The [employer] recommends an annual screening mammogram for women aged 40 years or over. This facility utilizes a reminder system to ensure that all patients receive reminder letters, and/or direct phone calls for appointments. This includes reminders for routine scr eening mammograms, diagnostic mammograms, or other Breast Imaging Interventions when appropriate. Th is patient will be placed in the appropriate reminder system. The [employer] (ACR) has developed recommendations for screening MRI of the breast s in certain patient populations, to be used in conjunction with mammography. Breast MRI surveillanc e may be appropriate for women with more than 20% lifetime risk of developing breast cancer as deter mined by genetic testing, significant family history of the disease, or history of mantle radiation f or Hodgkins Disease. ACR Practice Guidelines 2008. TECHNICAL DOCUMENTATION: FINDING NUMBER: (1) ASSESSMENT: (1) JOB ID: [id number] [employer])- All Rights Reserved
== END ==
LOC: WI 13:19
PROVIDERS: ATTEND Internal Medicine
DX: Z12.31 Encounter for screening mammogram for malignant neoplasm of breast (principal)
CPT/HCPCS: 77067

== ENCOUNTER 2017-07-06 15:12 | Emergency (ER) | payer MEDICARE, MEDICAID ==
--- NOTE | 2017-07-06 16:28 | ER Document Report ---
ED Medical Screen (RME) - General Mode of Arrival: Ambulatory Information source: Patient TRAVEL OUTSIDE OF THE U.S. IN LAST 30 DAYS: No <ONEL GERARDO - Last Filed: 07/06/17 16:27> <MARIA ELENA KEN - Last Filed: 07/07/17 14:55> - General Chief Complaint: Dizziness Stated Complaint: DIZZINESS Time Seen by Provider: 07/06/17 16:27 Notes: This is a 67-year-old female with a history of diabetes, multiple GI bleeds in the past requiring transfusions, who presents to the emergency room with progressive weakness over the last several days in the setting of black stools. (ONEL GERARDO) - Related Data Allergies/Adverse Reactions: propoxyphene napsylate [From DarCOSMIC COLORt-N 100] Allergy (Unknown, Verified 11:55) aspirin Allergy (Verified 07/06/17 15:13) coffee (Coffea arabica) [Coffee] Adverse Reaction (Intermediate, Verified 11:55) vomitting Past Medical History - Social History Frequency of alcohol use: Rare - Past Medical History Cardiac Medical History: Reports: Hx Heart Attack, Hx Hypercholesterolemia, Hx Hypertension Pulmonary Medical History: Reports: Hx Bronchitis, Hx Pneumonia Denies: Hx Tuberculosis Neurological Medical History: Denies: Hx Seizures Endocrine Medical History: Reports: Hx Diabetes Mellitus Type 1, Hx Diabetes Mellitus Type 2 Renal/ Medical History: Denies: Hx Peritoneal Dialysis GI Medical History: Reports: Hx Gastritis Musculoskeltal Medical History: Reports Hx Arthritis Past Surgical History: Reports: Hx Abdominal Surgery, Hx Appendectomy, Hx Cardiac Catheterization, Hx Hysterectomy, Hx Tonsillectomy - adnoids, Hx Tubal Ligation - Immunizations Hx Diphtheria, Pertussis, Tetanus Vaccination: No <ONEL GERARDO - Last Filed: 07/06/17 16:27> - Vital signs Vitals: Temp Pulse Resp BP Pulse Ox 97.9 F 106 H 16 134/59 H 100 07/06/17 15:27 07/06/17 15:27 07/06/17 15:27 07/06/17 15:27 07/06/17 15:27 Course <ONEL GERARDO - Last Filed: 07/06/17 16:27> - Laboratory Result Diagrams: 07/06/17 18:00 07/06/17 18:00 <MARIA ELENA KEN - Last Filed: 07/07/17 14:55> - Re-evaluation Re-evalutation: 07/06/17 19:44 Patient reevaluated at 1944. She was advised of her hemoglobin at 5.8 and the need for transfer to [facility]. (MARIA ELENA KEN) - Vital Signs Vital signs: Temp Pulse Resp BP Pulse Ox 98.1 F 99 26 H 127/113 H 100 07/06/17 22:00 07/06/17 22:21 07/06/17 22:21 07/06/17 22:20 07/06/17 22:21 - Laboratory Laboratory results interpreted by me: 07/06/17 07/06/17 07/06/17 18:00 18:00 18:00 RBC 2.49 L Hgb 5.8 L Hct 18.7 L MCV 75 L MCH 23.3 L MCHC 31.1 L RDW 19.1 H Potassium 5.3 H Carbon Dioxide 20 L BUN 23 H Creatinine 0.48 L Glucose 272 H POC Glucose Total Bilirubin < 0.1 L Alkaline Phosphatase 133 H Crossmatch See Detail 07/06/17 21:28 RBC Hgb Hct MCV MCH MCHC RDW Potassium Carbon Dioxide BUN Creatinine Glucose POC Glucose 252 H Total Bilirubin Alkaline Phosphatase Crossmatch Doctor's Discharge <ONEL GERARDO - Last Filed: 07/06/17 16:27> <MARIA ELENA KEN - Last Filed: 07/07/17 14:55> - Discharge Clinical Impression: Upper GI bleed Condition: Fair Disposition: [facility] Referrals: FRANCI FLORES MD [Primary Care Provider] - Follow up as needed
[2017-07-06] MEDS ORDERED: NORMAL SALINE 500 ML IV ONE (18:23)
[2017-07-06 18:32] LABS: PROTHROMBIN TIME 12.8 SEC (11.4-15.4)
[2017-07-06 18:39] LABS: ABSOLUTE BASOPHILS # (AUTO) 0.1 10^3/uL (0.0-0.2); ABSOLUTE LYMPHOCYTES (AUTO) 1.7 10^3/uL (0.5-4.7); ABSOLUTE MONOCYTES (AUTO) 0.4 10^3/uL (0.1-1.4); ABSOLUTE NEUT (AUTO) 5.5 10^3/uL (1.7-8.2); BASOPHILS % (AUTO) 1.3 % (0-2); EOSINOPHILS % (AUTO) 0.5 % (0-6); HEMATOCRIT 18.7 % (36.0-47.0); LYMPHOCYTES % (AUTO) 22.2 % (13-45); MEAN CORPUSCULAR HEMOGLOBIN 23.3 pg (27.0-33.4); MEAN CORPUSCULAR HGB CONC 31.1 g/dL (32.0-36.0); MEAN CORPUSCULAR VOLUME 75 fl (80-97); MONOCYTES % (AUTO) 4.8 % (3-13); PLATELET COUNT 365 10^3/uL (150-450); RED BLOOD COUNT 2.49 10^6/uL (3.72-5.28); RED CELL DISTRIBUTION WIDTH 19.1 % (11.5-14.0); SEGMENTED NEUTROPHILS % (AUTO) 71.2 % (42-78); TOTAL CELLS COUNTED % (AUTO) 100 %; WHITE BLOOD COUNT 7.8 10^3/uL (4.0-10.5)
[2017-07-06 18:49] LABS: ALANINE AMINOTRANSFERASE 28 U/L (9-52); ALKALINE PHOSPHATASE 133 U/L (38-126); ANION GAP 17 (5-19); ASPARTATE AMINO TRANSFERASE 24 U/L (14-36); BLOOD UREA NITROGEN 23 mg/dL (7-20); CALCIUM 10.1 mg/dL (8.4-10.2); CARBON DIOXIDE 20 mmol/L (22-30); CHLORIDE 101 mmol/L (98-107); GLUCOSE 272 mg/dL (75-110); POTASSIUM 5.3 mmol/L (3.6-5.0); SODIUM 138.4 mmol/L (137-145); TOTAL PROTEIN 7.1 g/dL (6.3-8.2)
[2017-07-06 18:51] LABS: BILIRUBIN,TOTAL < 0.1 mg/dL (0.2-1.3)
[2017-07-06 18:59] LABS: HEMOGLOBIN 5.8 g/dL (12.0-15.5)
[2017-07-06] MEDS ORDERED: NORMAL SALINE 250 ML IV PRN (18:59)
[2017-07-06] MEDS ORDERED: PANTOPRAZOLE SODIUM 40 MG VIAL IV PRN (20:09)
[2017-07-06] MEDS ORDERED: METFORMIN HCL 500 MG TABLET PO ONE (21:45)
--- NOTE | 2017-07-06 21:45 | ER Document Report ---
ED General - General Chief Complaint: Dizziness Stated Complaint: DIZZINESS Time Seen by Provider: 07/06/17 16:27 Mode of Arrival: Ambulatory Information source: Patient, Transfer Record, [facility] Records Notes: 67-year-old female with a history of type 2 diabetes, upper GI bleed presents with complaint of dizziness that started 2 days prior to arrival. Patient states that she has had frequent episodes of feeling like she was going to " pass out". She denies any syncopal episodes. She also is complaining of weakness, fatigue and shortness of breath with minimal exertion. Patient denies headache, vision changes, nausea, vomiting, chest pain, abdominal pain. She does describe some black stools over the last few days. She was transferred to [facility] in January 2017 from [facility] after being found to have an upper GI bleed with a hemoglobin of 4.7. Patient was treated there but has not followed up with GI as recommended. At that time she stated she was told that she had a portion of her small bowel that was bleeding. TRAVEL OUTSIDE OF THE U.S. IN LAST 30 DAYS: No - HPI Onset: Other - 2 days prior to arrival Onset/Duration: Gradual Quality of pain: No pain Severity: None Pain Level: Denies Associated symptoms: Shortness of breath, Weakness Exacerbated by: Walking Relieved by: Denies Similar symptoms previously: Yes Recently seen / treated by doctor: No - Related Data Allergies/Adverse Reactions: propoxyphene napsylate [From Darvocet-N 100] Allergy (Unknown, Verified 11:55) aspirin Allergy (Verified 07/06/17 15:13) coffee (Coffea arabica) [Coffee] Adverse Reaction (Intermediate, Verified 11:55) vomitting Past Medical History - General Information source: Patient - Social History Smoking Status: Former Smoker Frequency of alcohol use: Rare Family History: CAD, CVA, Hypertension Patient has suicidal ideation: No Patient has homicidal ideation: No - Past Medical History Cardiac Medical History: Reports: Hx Heart Attack, Hx Hypercholesterolemia, Hx Hypertension Pulmonary Medical History: Reports: Hx Bronchitis, Hx Pneumonia Denies: Hx Tuberculosis Neurological Medical History: Denies: Hx Seizures Endocrine Medical History: Reports: Hx Diabetes Mellitus Type 1, Hx Diabetes Mellitus Type 2 Renal/ Medical History: Denies: Hx Peritoneal Dialysis GI Medical History: Reports: Hx Gastritis, Other - Perforated peptic ulcer and upper GI bleed Musculoskeltal Medical History: Reports Hx Arthritis Past Surgical History: Reports: Hx Abdominal Surgery, Hx Appendectomy, Hx Cardiac Catheterization, Hx Hysterectomy, Hx Tonsillectomy - adnoids, Hx Tubal Ligation - Immunizations Hx Diphtheria, Pertussis, Tetanus Vaccination: No Hx Pneumococcal Vaccination: 02/22/13 Review of Systems - Review of Systems Constitutional: See HPI Physical Exam - Vital signs Vitals: Temp Pulse Resp BP Pulse Ox 97.9 F 106 H 16 134/59 H 100 07/06/17 15:27 07/06/17 15:27 07/06/17 15:27 07/06/17 15:27 07/06/17 15:27 - General General appearance: Appears well, Alert - HEENT Head: Normocephalic, Atraumatic Eyes: Normal Conjunctiva: Other - Pale Pupils: PERRL - Rectal Stool: Heme positive - brown stool Course - Re-evaluation Re-evalutation: 07/06/17 22:00 67-year-old female with known prior upper GI bleed presents with complaint of dizziness that has been ongoing for 2 days. Upon arrival patient was placed on athletic monitor and vital signs were reviewed. Patient was found to be in sinus tachycardia, she is afebrile and not hypoxic. Patient does not appear toxic or dehydrated. She is in no acute distress. Exam significant for pale conjunctivae. Significant laboratory findings include positive stool and a hemoglobin of 5.8. Patient had similar symptoms in January 2017 when she was transferred to [facility] and diagnosed with a perforated ulcer and bleeding of my small bowel". Patient was placed on a Protonix drip and 2 units of PRBCs were transfused. She remained stable throughout her ED course. He was accepted by Dr. patel transferred in stable condition. - Vital Signs Vital signs: Temp Pulse Resp BP Pulse Ox 98.1 F 106 H 16 111/62 100 07/06/17 20:35 07/06/17 20:35 07/06/17 20:35 07/06/17 20:35 07/06/17 20:35 - Laboratory Result Diagrams: 07/06/17 18:00 07/06/17 18:00 Laboratory results interpreted by me: 07/06/17 07/06/17 07/06/17 18:00 18:00 18:00 RBC 2.49 L Hgb 5.8 L Hct 18.7 L MCV 75 L MCH 23.3 L MCHC 31.1 L RDW 19.1 H Potassium 5.3 H Carbon Dioxide 20 L BUN 23 H Creatinine 0.48 L Glucose 272 H POC Glucose Total Bilirubin < 0.1 L Alkaline Phosphatase 133 H Crossmatch See Detail 07/06/17 21:28 RBC Hgb Hct MCV MCH MCHC RDW Potassium Carbon Dioxide BUN Creatinine Glucose POC Glucose 252 H Total Bilirubin Alkaline Phosphatase Crossmatch Discharge - Discharge Clinical Impression: Upper GI bleed Condition: Fair Disposition: [facility] Admitting Provider: Sheree Unit Admitted: Medical Floor Referrals: FRANCI FLORES MD [Primary Care Provider] - Follow up as needed
--- NOTE | 2017-07-06 21:55 | EKG REPORT ---
SEVERITY:- ABNORMAL ECG - SINUS TACHYCARDIA PROBABLE LEFT ATRIAL ABNORMALITY BORDERLINE LEFT AXIS DEVIATION ANTERIOR INFARCT, AGE INDETERMINATE : Confirmed by: Jose Liang MD 06-Jul-2017 21:54:22
[2017-07-06 22:30] VITALS: BP 127/113
== END 2017-07-06 22:30 | disposition short-term general hospital (02) ==
LOC: ER 15:12
DX: K92.2 Gastrointestinal hemorrhage, unspecified (principal); R42 Dizziness and giddiness; R53.1 Weakness; R06.02 Shortness of breath; E11.9 Type 2 diabetes mellitus without complications; E78.00 Pure hypercholesterolemia, unspecified; I10 Essential (primary) hypertension; Z88.6 Allergy status to analgesic agent; I25.2 Old myocardial infarction; Z90.710 Acquired absence of both cervix and uterus
CPT/HCPCS: 93005; 99285; 96365; 86900; 86901; 36415; 36430; 86850; 82962; 85025; 85610; 82272; 80053; 86920; 93010; P9016; C9113; A9270; J7040; S0164

== ENCOUNTER 2017-09-09 12:13 | Emergency (ER) | payer MEDICARE, MEDICAID ==
--- NOTE | 2017-09-09 12:46 | ER Document Report ---
ED Medical Screen (RME) - General Chief Complaint: Dizziness Stated Complaint: DIZZINESS Time Seen by Provider: 09/09/17 12:40 Notes: 67-year-old female patient history of gastric and probable duodenal ulcers. Has been feeling dizzy when she stands up recently. She was transferred to [facility] on 07/06/2017 for upper GI bleed and anemia. She states that the black stools have not really cleared up since that admission to [facility]. She had endoscopy at that time showing what sounds like gastric and duodenal ulcers. I have greeted and performed a rapid initial assessment of this patient. A comprehensive ED assessment and evaluation of the patient, analysis of test results and completion of the medical decision making process will be conducted by additional ED providers. TRAVEL OUTSIDE OF THE [place] IN LAST 30 DAYS: No - Related Data Allergies/Adverse Reactions: propoxyphene napsylate [From Darvocet-N 100] Allergy (Unknown, Verified 12:17) aspirin Allergy (Verified 09/09/17 12:17) coffee (Coffea arabica) [Coffee] Adverse Reaction (Intermediate, Verified 12:17) vomitting Past Medical History - Social History Chew tobacco use (# tins/day): No Frequency of alcohol use: None Drug Abuse: None - Past Medical History Cardiac Medical History: Reports: Hx Heart Attack, Hx Hypercholesterolemia, Hx Hypertension Pulmonary Medical History: Reports: Hx Bronchitis, Hx Pneumonia Denies: Hx Tuberculosis Neurological Medical History: Denies: Hx Seizures Endocrine Medical History: Reports: Hx Diabetes Mellitus Type 1, Hx Diabetes Mellitus Type 2 Renal/ Medical History: Denies: Hx Peritoneal Dialysis GI Medical History: Reports: Hx Gastritis Musculoskeltal Medical History: Reports Hx Arthritis Past Surgical History: Reports: Hx Abdominal Surgery, Hx Appendectomy, Hx Cardiac Catheterization, Hx Hysterectomy, Hx Tonsillectomy - adnoids, Hx Tubal Ligation - Immunizations Hx Diphtheria, Pertussis, Tetanus Vaccination: No Physical Exam - Vital signs Vitals: Temp Pulse Resp BP Pulse Ox 98.7 F 97 16 109/55 L 100 09/09/17 12:30 09/09/17 12:30 09/09/17 12:30 09/09/17 12:30 09/09/17 12:30 Course - Vital Signs Vital signs: Temp Pulse Resp BP Pulse Ox 98.7 F 97 16 109/55 L 100 09/09/17 12:30 09/09/17 12:30 09/09/17 12:30 09/09/17 12:30 09/09/17 12:30
[2017-09-09 13:57] LABS: ABSOLUTE BASOPHILS # (AUTO) 0.1 10^3/uL (0.0-0.2); ABSOLUTE MONOCYTES (AUTO) 0.5 10^3/uL (0.1-1.4); ABSOLUTE NEUT (AUTO) 5.7 10^3/uL (1.7-8.2); BASOPHILS % (AUTO) 1.3 % (0-2); EOSINOPHILS % (AUTO) 0.4 % (0-6); HEMATOCRIT 20.8 % (36.0-47.0); LYMPHOCYTES % (AUTO) 23.8 % (13-45); MEAN CORPUSCULAR HEMOGLOBIN 24.3 pg (27.0-33.4); MEAN CORPUSCULAR HGB CONC 30.3 g/dL (32.0-36.0); MEAN CORPUSCULAR VOLUME 80 fl (80-97); MONOCYTES % (AUTO) 5.5 % (3-13); PLATELET COUNT 526 10^3/uL (150-450); RED BLOOD COUNT 2.59 10^6/uL (3.72-5.28); RED CELL DISTRIBUTION WIDTH 20.9 % (11.5-14.0); TOTAL CELLS COUNTED % (AUTO) 100 %; WHITE BLOOD COUNT 8.2 10^3/uL (4.0-10.5)
[2017-09-09 13:59] LABS: HEMOGLOBIN 6.3 g/dL (12.0-15.5)
[2017-09-09 14:02] LABS: PROTHROMBIN TIME 12.6 SEC (11.4-15.4)
[2017-09-09 14:08] LABS: ALANINE AMINOTRANSFERASE 14 U/L (9-52); ALBUMIN 4.3 g/dL (3.5-5.0); ALKALINE PHOSPHATASE 127 U/L (38-126); ANION GAP 15 (5-19); ASPARTATE AMINO TRANSFERASE 34 U/L (14-36); BILIRUBIN,DIRECT 0.3 mg/dL (0.0-0.4); BILIRUBIN,TOTAL 0.3 mg/dL (0.2-1.3); BLOOD UREA NITROGEN 20 mg/dL (7-20); CALCIUM 9.8 mg/dL (8.4-10.2); CARBON DIOXIDE 22 mmol/L (22-30); CHLORIDE 104 mmol/L (98-107); CREATINE KINASE 20 U/L (30-135); GLUCOSE 170 mg/dL (75-110); POTASSIUM 5.3 mmol/L (3.6-5.0); SODIUM 140.9 mmol/L (137-145); TOTAL PROTEIN 7.6 g/dL (6.3-8.2)
[2017-09-09] MEDS ORDERED: NORMAL SALINE 250 ML IV PRN ×2 (14:50)
[2017-09-09] MEDS ORDERED: PANTOPRAZOLE SODIUM 40 MG VIAL IV PRN (14:51)
--- NOTE | 2017-09-09 14:53 | ER Document Report ---
ED General - General Chief Complaint: Dizziness Stated Complaint: DIZZINESS Time Seen by Provider: 09/09/17 12:40 Mode of Arrival: Ambulatory Information source: Patient Notes: 67-year-old female with a history of hypertension, diabetes, known upper GI bleed presents with complaint of dizziness, black stools. Patient states dizziness has been ongoing for 2 weeks. She describes it as feeling lightheaded and as if she was going to pass out. Patient reports that she has had consistent black stools since discharge from [facility] in July 2017 after undergoing endoscopy which showed a bleeding peptic ulcer and a "bleed in my small intestine". She again has not followed up with GI due to transportation issues. Patient admits to associated shortness of breath. TRAVEL OUTSIDE OF THE [place] IN LAST 30 DAYS: No - HPI Onset/Duration: Gradual Quality of pain: No pain Exacerbated by: Standing, Walking Relieved by: Remaining still Similar symptoms previously: Yes Recently seen / treated by doctor: Yes - Dr. Dang - Related Data Allergies/Adverse Reactions: propoxyphene napsylate [From Darvocet-N 100] Allergy (Unknown, Verified 12:17) aspirin Allergy (Verified 09/09/17 12:17) coffee (Coffea arabica) [Coffee] Adverse Reaction (Intermediate, Verified 12:17) vomitting Past Medical History - General Information source: Patient - Social History Smoking Status: Former Smoker Chew tobacco use (# tins/day): No Frequency of alcohol use: None Drug Abuse: None Family History: CAD, CVA, Hypertension Patient has suicidal ideation: No Patient has homicidal ideation: No - Past Medical History Cardiac Medical History: Reports: Hx Heart Attack, Hx Hypercholesterolemia, Hx Hypertension Pulmonary Medical History: Reports: Hx Bronchitis, Hx Pneumonia Denies: Hx Tuberculosis Neurological Medical History: Denies: Hx Seizures Endocrine Medical History: Reports: Hx Diabetes Mellitus Type 1, Hx Diabetes Mellitus Type 2 Renal/ Medical History: Denies: Hx Peritoneal Dialysis GI Medical History: Reports: Hx Gastritis Musculoskeltal Medical History: Reports Hx Arthritis Past Surgical History: Reports: Hx Abdominal Surgery, Hx Appendectomy, Hx Cardiac Catheterization, Hx Hysterectomy, Hx Tonsillectomy - adnoids, Hx Tubal Ligation - Immunizations Hx Diphtheria, Pertussis, Tetanus Vaccination: No Hx Pneumococcal Vaccination: 02/22/13 Review of Systems - Review of Systems Notes: Patient denies fever, chills, nausea, vomiting, headache, ear pain, sore throat , cough, chest pain, abdominal pain, back pain, dysuria, hematuria, rash, SI/HI. Physical Exam - Vital signs Vitals: Temp Pulse Resp BP Pulse Ox 98.7 F 97 16 109/55 L 100 09/09/17 12:30 09/09/17 12:30 09/09/17 12:30 09/09/17 12:30 09/09/17 12:30 Interpretation: Normal, Hypotensive. No: Febrile - Notes Notes: PHYSICAL EXAMINATION: GENERAL: Well-appearing, well-nourished and in no acute distress. HEAD: Atraumatic, normocephalic. EYES: Pupils equal round and reactive to light, extraocular movements intact, conjunctiva are normal. ENT: Nares patent, oropharynx clear without exudates. Moist mucous membranes. NECK: Normal range of motion, supple without lymphadenopathy LUNGS: Breath sounds clear to auscultation bilaterally and equal. No wheezes rales or rhonchi. HEART: Regular rate and rhythm without murmurs ABDOMEN: Soft, nontender, nondistended abdomen. No guarding, no rebound. No masses appreciated. Rectal: Brown stool no active bleeding Musculoskeletal: Normal range of motion, no pitting or edema. No cyanosis. NEUROLOGICAL: Cranial nerves grossly intact. Normal speech, normal gait. Normal sensory, motor exams PSYCH: Normal mood, normal affect. SKIN: Warm, Dry, normal turgor, no rashes or lesions noted. Course - Re-evaluation Re-evalutation: Laboratory 09/09/17 09/09/17 09/09/17 13:20 13:20 13:20 WBC 8.2 RBC 2.59 L Hgb 6.3 L Hct 20.8 L MCV 80 MCH 24.3 L MCHC 30.3 L RDW 20.9 H Plt Count 526 H Seg Neutrophils % 69.0 Lymphocytes % 23.8 Monocytes % 5.5 Eosinophils % 0.4 Basophils % 1.3 Absolute Neutrophils 5.7 Absolute Lymphocytes 2.0 Absolute Monocytes 0.5 Absolute Eosinophils 0.0 Absolute Basophils 0.1 PT 12.6 INR 0.90 Sodium 140.9 Potassium 5.3 H Chloride 104 Carbon Dioxide 22 Anion Gap 15 BUN 20 Creatinine 0.56 Est GFR ( Amer) > 60 Est GFR (Non-Af Amer) > 60 Glucose 170 H Calcium 9.8 Total Bilirubin 0.3 Direct Bilirubin 0.3 Neonat Total Bilirubin Not Reportable Neonat Direct Bilirubin Not Reportable Neonat Indirect Bili Not Reportable AST 34 ALT 14 Alkaline Phosphatase 127 H Creatine Kinase 20 L Troponin I Total Protein 7.6 Albumin 4.3 Stool Occult Blood Blood Type Antibody Screen Crossmatch 09/09/17 09/09/17 09/09/17 13:20 14:44 15:17 WBC RBC Hgb Hct MCV MCH MCHC RDW Plt Count Seg Neutrophils % Lymphocytes % Monocytes % Eosinophils % Basophils % Absolute Neutrophils Absolute Lymphocytes Absolute Monocytes Absolute Eosinophils Absolute Basophils PT INR Sodium Potassium Chloride Carbon Dioxide Anion Gap BUN Creatinine Est GFR ( Amer) Est GFR (Non-Af Amer) Glucose Calcium Total Bilirubin Direct Bilirubin Neonat Total Bilirubin Neonat Direct Bilirubin Neonat Indirect Bili AST ALT Alkaline Phosphatase Creatine Kinase Troponin I < 0.012 Total Protein Albumin Stool Occult Blood POSITIVE Blood Type O POSITIVE Antibody Screen NEGATIVE Crossmatch See Detail 09/09/17 09/09/17 16:10 19:05 WBC 7.7 7.3 RBC 2.34 L 2.74 L Hgb 5.7 L 7.1 L Hct 18.6 L 22.0 L MCV 79 L 80 MCH 24.5 L 26.0 L MCHC 30.8 L 32.4 RDW 21.0 H 19.5 H Plt Count 456 H 453 H Seg Neutrophils % 62.7 Lymphocytes % 30.3 Monocytes % 5.1 Eosinophils % 0.4 Basophils % 1.5 Absolute Neutrophils 4.6 Absolute Lymphocytes 2.2 Absolute Monocytes 0.4 Absolute Eosinophils 0.0 Absolute Basophils 0.1 PT INR Sodium Potassium Chloride Carbon Dioxide Anion Gap BUN Creatinine Est GFR ( Amer) Est GFR (Non-Af Amer) Glucose Calcium Total Bilirubin Direct Bilirubin Neonat Total Bilirubin Neonat Direct Bilirubin Neonat Indirect Bili AST ALT Alkaline Phosphatase Creatine Kinase Troponin I Total Protein Albumin Stool Occult Blood Blood Type Antibody Screen Crossmatch 67-year-old female with a history of hypertension, diabetes, known upper GI bleed presents with complaint of dizziness, black stools. Patient states dizziness has been ongoing for 2 weeks. She describes it as feeling lightheaded and as if she was going to pass out. Patient reports that she has had consistent black stools since discharge from [facility] in July 2017 after undergoing endoscopy which showed a bleeding peptic ulcer and a "bleed in my small intestine". She again has not followed up with GI due to transportation issues. Patient admits to associated shortness of breath. Patient was seen by myself upon arrival. Vital signs were reviewed. Patient is afebrile, normotensive and not hypoxic. Patient does not appear toxic or dehydrated. They are in no acute distress. She does appear pale. Previous medical records and nursing notes reviewed. Significant findings include a hemoglobin of 6.3, occult positive stool. I did speak to [facility] who is familar with the patient and treated her in July for similar symptoms. Patient was accepted by Dr. Sage. 09/09/17 19:52 Patient reevaluated and is resting comfortably. She is receiving blood. Vital signs stable. She has been accepted by [facility] and we are awaiting a bed. 09/09/17 19:53 Repeat CBC pending 09/09/17 20:30 Repeat CBC shows a hemoglobin of 7.1 up from 6.3 after 1 unit of PRBCs. 09/09/17 21:15 Unit of PRBCs being administered. 09/10/17 01:[address] out to Dr Vaughn awaiting transfer to [facility]. Hgb uptrending. VSS. - Vital Signs Vital signs: Temp Pulse Resp BP Pulse Ox 98.5 F 97 16 163/69 H 100 09/09/17 22:01 09/09/17 12:30 09/09/17 23:01 09/09/17 23:01 09/09/17 23:01 - Laboratory Result Diagrams: 09/09/17 23:50 09/09/17 13:20 Laboratory results interpreted by me: 09/09/17 09/09/17 09/09/17 13:20 13:20 15:17 RBC 2.59 L Hgb 6.3 L Hct 20.8 L MCV MCH 24.3 L MCHC 30.3 L RDW 20.9 H Plt Count 526 H Potassium 5.3 H Glucose 170 H Alkaline Phosphatase 127 H Creatine Kinase 20 L Crossmatch See Detail 09/09/17 09/09/17 09/09/17 16:10 19:05 23:50 RBC 2.34 L 2.74 L 3.23 L Hgb 5.7 L 7.1 L 8.5 L Hct 18.6 L 22.0 L 26.1 L MCV 79 L MCH 24.5 L 26.0 L 26.3 L MCHC 30.8 L RDW 21.0 H 19.5 H 18.2 H Plt Count 456 H 453 H Potassium Glucose Alkaline Phosphatase Creatine Kinase Crossmatch Discharge - Discharge Clinical Impression: Upper GI bleed, Hyperglycemia, Dizziness Anemia Qualifiers: Anemia type: other cause Other causes of anemia: other cause, not classified Qualified Code(s): D64.89 - Other specified anemias Condition: Good Disposition: [facility]
[2017-09-09] MEDS ORDERED: ONDANSETRON HCL INJ/PF 4 MG/2 ML SDV IV ONE (15:39)
[2017-09-09] MEDS ORDERED: CEFTRIAXONE INJ 1000 MG VIAL IV ONE (15:42)
[2017-09-09 16:32] LABS: HEMATOCRIT 18.6 % (36.0-47.0); MEAN CORPUSCULAR HEMOGLOBIN 24.5 pg (27.0-33.4); MEAN CORPUSCULAR HGB CONC 30.8 g/dL (32.0-36.0); MEAN CORPUSCULAR VOLUME 79 fl (80-97); PLATELET COUNT 456 10^3/uL (150-450); RED BLOOD COUNT 2.34 10^6/uL (3.72-5.28); WHITE BLOOD COUNT 7.7 10^3/uL (4.0-10.5)
[2017-09-09 16:35] LABS: HEMOGLOBIN 5.7 g/dL (12.0-15.5)
--- NOTE | 2017-09-09 19:10 | EKG REPORT ---
SEVERITY:- NORMAL ECG - SINUS RHYTHM : Confirmed by: Deidre Hogan 09-Sep-2017 19:08:49
[2017-09-09 19:49] LABS: ABSOLUTE BASOPHILS # (AUTO) 0.1 10^3/uL (0.0-0.2); ABSOLUTE LYMPHOCYTES (AUTO) 2.2 10^3/uL (0.5-4.7); ABSOLUTE MONOCYTES (AUTO) 0.4 10^3/uL (0.1-1.4); ABSOLUTE NEUT (AUTO) 4.6 10^3/uL (1.7-8.2); BASOPHILS % (AUTO) 1.5 % (0-2); EOSINOPHILS % (AUTO) 0.4 % (0-6); LYMPHOCYTES % (AUTO) 30.3 % (13-45); MEAN CORPUSCULAR HGB CONC 32.4 g/dL (32.0-36.0); MEAN CORPUSCULAR VOLUME 80 fl (80-97); MONOCYTES % (AUTO) 5.1 % (3-13); PLATELET COUNT 453 10^3/uL (150-450); RED BLOOD COUNT 2.74 10^6/uL (3.72-5.28); RED CELL DISTRIBUTION WIDTH 19.5 % (11.5-14.0); SEGMENTED NEUTROPHILS % (AUTO) 62.7 % (42-78); TOTAL CELLS COUNTED % (AUTO) 100 %; WHITE BLOOD COUNT 7.3 10^3/uL (4.0-10.5)
[2017-09-09 19:53] LABS: HEMOGLOBIN 7.1 g/dL (12.0-15.5)
[2017-09-10 00:06] LABS: HEMATOCRIT 26.1 % (36.0-47.0); HEMOGLOBIN 8.5 g/dL (12.0-15.5); MEAN CORPUSCULAR HEMOGLOBIN 26.3 pg (27.0-33.4); RED BLOOD COUNT 3.23 10^6/uL (3.72-5.28); RED CELL DISTRIBUTION WIDTH 18.2 % (11.5-14.0)
[2017-09-10 00:10] LABS: MEAN CORPUSCULAR HGB CONC 32.6 g/dL (32.0-36.0); MEAN CORPUSCULAR VOLUME 81 fl (80-97); PLATELET COUNT 391 10^3/uL (150-450); WHITE BLOOD COUNT 6.4 10^3/uL (4.0-10.5)
[2017-09-10 01:38] VITALS: BP 166/82
[2017-09-10 01:46] LABS: AMORPHOUS SEDIMENT,URINE TRACE /HPF; APPEARANCE,URINE SLIGHTLY-CLOUDY; BILIRUBIN,URINE NEGATIVE (NEGATIVE); COLOR,URINE YELLOW; GLUCOSE, URINE NEGATIVE (NEGATIVE); KETONES,URINE NEGATIVE (NEGATIVE); LEUKOCYTE ESTERASE,URINE NEGATIVE (NEGATIVE); NITRITE,URINE NEGATIVE (NEGATIVE); PROTEIN,URINE NEGATIVE (NEGATIVE); URINE SPECIFIC GRAVITY 1.015; UROBILINOGEN,URINE NEGATIVE mg/dL (<2.0)
== END 2017-09-10 03:38 | disposition short-term general hospital (02) ==
LOC: ER 12:13
DX: R42 Dizziness and giddiness (principal); D64.89 Other specified anemias; E11.65 Type 2 diabetes mellitus with hyperglycemia; K92.2 Gastrointestinal hemorrhage, unspecified; R06.02 Shortness of breath; E78.00 Pure hypercholesterolemia, unspecified; I25.2 Old myocardial infarction; Z90.710 Acquired absence of both cervix and uterus
CPT/HCPCS: 93005; 99285; 96365; 96366; 96368; 86900; 86901; 36415; 36430; 86850; 82550; 85025; 85027; 85610; 82272; 80053; 81001; 84484; 86920; 93010; P9016; C9113; J0696; J2405; J7050; S0164

== ENCOUNTER 2017-12-08 17:59 | Emergency (ER) | payer MEDICARE, MEDICAID ==
[2017-12-08] MEDS ORDERED: NORMAL SALINE 1000 ML 1,000 ML IV ONE (18:30)
--- NOTE | 2017-12-08 18:36 | ER Document Report ---
ED Medical Screen (RME) - General Chief Complaint: Dizziness Stated Complaint: WEAK/DIZZY/SHORT OF BREATH Time Seen by Provider: 12/08/17 18:02 TRAVEL OUTSIDE OF THE [place] IN LAST 30 DAYS: No - HPI Notes: 12/08/17 18:31 Patient is a 67-year-old female with a history of diabetes (on insulin and metformin), hypertension, acute blood loss anemia who presents to the ED complaining of generalized weakness, feeling short of breath with exertion, and occasional dizziness over the last 3 weeks but worsening over the last 2-3 days. Patient states that she is also noticed dark colored stool. Patient was transferred to [facility] as well as to [facility] for upper GI bleed which she had an endoscopy for about 1-2mos ago. Pt states current symptoms are similar to when she was here and needed to be transfused and transferred. Pt states she has had about 8 transfusions over the last several years. Denies fever, LYNCH, URI , cough, wheeze, chest pain, syncope, palpitations, abd pain, n/v/d, dysuria, rash. I have treated and performed a rapid initial assessment of this patient. A comprehensive ED assessment and evaluation of the patient, analysis of test results and completion of medical decision making process will be conducted by additional ED providers. PHYSICAL EXAMINATION: GENERAL: Pt does appear pale. A&Ox4. Answers questions appropriately. LUNGS: Breath sounds clear to auscultation bilaterally and equal. No wheezes rales or rhonchi. HEART: Regular rate and rhythm without murmurs, rubs, gallops. ABDOMEN: Soft, nondistended abdomen. No guarding, no rebound. bowel sounds present. No CVA tenderness bilaterally. difficult to fully assess when sitting in a chair. Extremities: No cyanosis, clubbing, or edema b/l. NEUROLOGICAL: Normal speech, normal gait. PSYCH: Normal mood, normal affect. - Related Data Allergies/Adverse Reactions: propoxyphene napsylate [From Darvocet-N 100] Allergy (Unknown, Verified 17:59) aspirin Allergy (Verified 12/08/17 17:59) coffee (Coffea arabica) [Coffee] Adverse Reaction (Intermediate, Verified 17:59) vomitting Past Medical History - Past Medical History Cardiac Medical History: Reports: Hx Heart Attack, Hx Hypercholesterolemia, Hx Hypertension Pulmonary Medical History: Reports: Hx Bronchitis, Hx Pneumonia Denies: Hx Tuberculosis Neurological Medical History: Denies: Hx Seizures Endocrine Medical History: Reports: Hx Diabetes Mellitus Type 1, Hx Diabetes Mellitus Type 2 Renal/ Medical History: Denies: Hx Peritoneal Dialysis GI Medical History: Reports: Hx Gastritis Musculoskeltal Medical History: Reports Hx Arthritis Past Surgical History: Reports: Hx Abdominal Surgery, Hx Appendectomy, Hx Cardiac Catheterization, Hx Hysterectomy, Hx Tonsillectomy - adnoids, Hx Tubal Ligation - Immunizations Hx Diphtheria, Pertussis, Tetanus Vaccination: No Physical Exam - Vital signs Vitals: Temp Pulse Resp BP Pulse Ox 99.1 F 111 H 20 130/56 H 100 12/08/17 18:03 12/08/17 18:03 12/08/17 18:03 12/08/17 18:03 12/08/17 18:03 Course - Vital Signs Vital signs: Temp Pulse Resp BP Pulse Ox 99.1 F 111 H 20 130/56 H 100 12/08/17 18:03 12/08/17 18:03 12/08/17 18:03 12/08/17 18:03 12/08/17 18:03
--- NOTE | 2017-12-08 19:07 | ER Document Report ---
ED Dizziness/Weakness - General Information source: Patient TRAVEL OUTSIDE OF THE [place] IN LAST 30 DAYS: No <MIROSLAVA YOUNG - Last Filed: 12/08/17 21:19> <KERRI RIBEIRO - Last Filed: 12/09/17 01:27> - General Chief Complaint: Dizziness Stated Complaint: WEAK/DIZZY/SHORT OF BREATH Time Seen by Provider: 12/08/17 18:02 Notes: 67-year-old female that presents to the emergency department today with complaints of 1 week of dizziness. Patient states that she has a history of being anemic secondary to a GI bleed however they were "never able to find a bleed". Patient had an endoscopy and colonoscopy done approximately 5 weeks ago. Patient was initially transferred to [facility] and then sent to [facility] to further workup this GI bleed, patients states "they were never able to find a bleed". Patient states she has been lightheaded, has had diarrhea, and slight abdominal pain. Patient has not noticed any blood in her stool. Patient states she has had a partial hysterectomy but is not having any vaginal bleeding. (MIROSLAVA YOUNG) - Related Data Allergies/Adverse Reactions: propoxyphene napsylate [From Darvocet-N 100] Allergy (Unknown, Verified 17:59) aspirin Allergy (Verified 12/08/17 17:59) coffee (Coffea arabica) [Coffee] Adverse Reaction (Intermediate, Verified 17:59) vomitting Past Medical History - General Information source: Patient, [facility] - Social History Smoking Status: Former Smoker - Quit in april of 2017 Cigarette use (# per day): No Family History: Reviewed & Not Pertinent, CAD, CVA, Hypertension Patient has suicidal ideation: No Patient has homicidal ideation: No - Past Medical History Cardiac Medical History: Reports: Hx Heart Attack, Hx Hypercholesterolemia, Hx Hypertension Pulmonary Medical History: Reports: Hx Bronchitis, Hx Pneumonia Denies: Hx Tuberculosis Neurological Medical History: Denies: Hx Seizures Endocrine Medical History: Reports: Hx Diabetes Mellitus Type 1, Hx Diabetes Mellitus Type 2 Renal/ Medical History: Denies: Hx Peritoneal Dialysis GI Medical History: Reports: Hx Gastritis Musculoskeletal Medical History: Reports Hx Arthritis Past Surgical History: Reports: Hx Abdominal Surgery, Hx Appendectomy, Hx Cardiac Catheterization, Hx Hysterectomy, Hx Tonsillectomy - adnoids, Hx Tubal Ligation - Immunizations Hx Diphtheria, Pertussis, Tetanus Vaccination: No Hx Pneumococcal Vaccination: 02/22/13 <MIROSLAVA YOUNG - Last Filed: 12/08/17 21:19> Review of Systems - Review of Systems Constitutional: No symptoms reported EENT: No symptoms reported Cardiovascular: See HPI, Dizziness, Lightheaded Respiratory: No symptoms reported Gastrointestinal: See HPI, Abdominal pain, Diarrhea, Other - feels similar to how she felt when she was anemic due to GI bleed Genitourinary: No symptoms reported Female Genitourinary: No symptoms reported Musculoskeletal: No symptoms reported Skin: No symptoms reported Hematologic/Lymphatic: No symptoms reported Neurological/Psychological: No symptoms reported -: Yes All other systems reviewed and negative <MIROSLAVA YOUNG - Last Filed: 12/08/17 21:19> Physical Exam <MIROSLAVA YOUNG - Last Filed: 12/08/17 21:19> <KERRI RIBEIRO - Last Filed: 12/09/17 01:27> - Vital signs Vitals: Temp Pulse Resp BP Pulse Ox 99.1 F 111 H 20 130/56 H 100 12/08/17 18:03 12/08/17 18:03 12/08/17 18:03 12/08/17 18:03 12/08/17 18:03 - Notes Notes: Physical Exam: General: Alert, appears well. HEENT: Normocephalic. Atraumatic. PERRL. Extraocular movements intact. Oropharynx clear. Neck: Supple. Non-tender. Respiratory: No respiratory distress. Clear and equal breath sounds bilaterally. Cardiovascular: Tachycardic, regular rhythm. Abdominal: Mild epigastric tenderness to palpation. No distension. Normal Bowel Sounds. Back: Non-tender. No deformity or step off. Extremities: Moves all four extremities. Upper extremities: Normal inspection. Normal ROM. Lower extremities: Normal inspection. No edema. Normal ROM. Neurological: Normal cognition. AAOx4. Normal speech. Psychological: Normal affect. Normal Mood. Skin: Warm. Dry. Pale. (MIROSLAVA YOUNG) Course - Laboratory Result Diagrams: 12/08/17 19:16 12/08/17 19:16 <MIROSLAVA YOUNG - Last Filed: 12/08/17 21:19> - Laboratory Result Diagrams: 12/08/17 19:16 12/08/17 19:16 <KERRI RIBEIRO - Last Filed: 12/09/17 01:27> - Re-evaluation Re-evalutation: 12/08/17 19:58 Paged [facility] regarding potential transfer. Will page GI doctor and call back. 12/08/17 20:50 Patient updated regarding potential transfer 12/08/17 21:15 [facility], Dr. Finn accepts patient naqvi ED to ED transfer (MIROSLAVA YOUNG) 12/08/17 21:30 Patient is a 67-year-old female who comes in feeling dizzy, lightheaded and like her heart is racing. Patient was initially tachycardic. She is less so at rest. He has a history of GI bleed but states that bleeding source was not identified from recent endoscopy and colonoscopy. Patient has had Hemoccult stool multiple times and has Hemoccult positive stool this evening. She does not have any bright red blood per rectum. Denies any bleeding from anywhere else. Of note she has had a hysterectomy in the past. Patient states that her last episode of bright red blood was last week. She was not seen at that time. Given that there is no gastroenterology here this evening or anyone able to do endoscopy, patient will require transfer. She is most recently at [facility] and thus her she will be transferred to. Patient is agreeable to this plan. She has been transfused 2 units of packed red blood cells. Platelets are high. Her primary doctor had suggested that perhaps she needed to see a chemistry technologist. Patient will be sent to the emergency department at [facility]. 12/09/17 00:59 Transport is here to transfer patient to [facility]. AVSS. NAD. Stable for transfer. (KERRI RIBEIRO) - Vital Signs Vital signs: Temp Pulse Resp BP Pulse Ox 98 F 86 11 L 141/59 H 99 12/08/17 21:41 12/08/17 23:21 12/09/17 00:20 12/09/17 00:20 12/09/17 00:20 - Laboratory Laboratory results interpreted by me: 12/08/17 12/08/17 12/08/17 19:16 19:16 19:16 RBC 2.23 L Hgb 5.5 L Hct 17.9 L MCH 24.6 L MCHC 30.6 L RDW 23.1 H Plt Count 477 H Carbon Dioxide 21 L Creatinine 0.43 L Glucose 153 H Crossmatch See Detail Critical Care Note - Critical Care Note Total time excluding time spent on procedures (mins): 60 - Evaluation and management of tachycardia, GI bleed, symptomatic anemia, transfusion, consultation with specialist, coordination of transfer, counseling of patient, multiple re-evaluations <KERRI RIBEIRO - Last Filed: 12/09/17 01:27> Discharge <MIROSLAVA YOUNG - Last Filed: 12/08/17 21:19> <KERRI RIBEIRO - Last Filed: 12/09/17 01:27> - Discharge Clinical Impression: Upper GI bleed, Anemia requiring transfusions Condition: Stable Disposition: [facility] Referrals: FRANCI FLORES MD [Primary Care Provider] - Follow up as needed Scribe Attestation: 12/09/17 01:27 I personally performed the services described in the documentation, reviewed and edited the documentation which was dictated to the scribe in my presence, and it accurately records my words and actions. (KERRI RIBEIRO) Scribe Documentation - Scribe Written by Wily:: Wily Whitaker, 192112/08/2017 acting as scribe for :: Cesilia <MIROSLAVA YOUNG - Last Filed: 12/08/17 21:19>
--- NOTE | 2017-12-08 19:19 | RADIOLOGY REPORT (SQ) ---
EXAM DESCRIPTION: CHEST SINGLE VIEW COMPLETED DATE/TIME: 12/08/2017 6:44 pm REASON FOR STUDY: sob COMPARISON: Chest films 10/19/2016, 09/02/2014 EXAM PARAMETERS: NUMBER OF VIEWS: One view. TECHNIQUE: Single frontal radiographic view of the chest acquired. RADIATION DOSE: NA LIMITATIONS: None. FINDINGS: LUNGS AND PLEURA: No opacities, masses or pneumothorax. No pleural effusion. MEDIASTINUM AND HILAR STRUCTURES: Fullness in the left upper mediastinum at the thoracic inlet likely related to an enlarged left lobe thyroid. This is similar compared to prior studies. HEART AND VASCULAR STRUCTURES: Heart normal in size. Normal vasculature. BONES: No acute findings. HARDWARE: None in the chest. OTHER: No other significant finding. IMPRESSION: NO ACUTE RADIOGRAPHIC FINDING IN THE CHEST. TECHNICAL DOCUMENTATION: JOB ID: [id number] [email or web address]- All Rights Reserved Reading location - IP/workstation name: [email or web address]
[2017-12-08 19:34] LABS: ABSOLUTE BASOPHILS # (AUTO) 0.1 10^3/uL (0.0-0.2); ABSOLUTE EOSINOPHILS # (AUTO) 0.1 10^3/uL (0.0-0.6); ABSOLUTE LYMPHOCYTES (AUTO) 2.1 10^3/uL (0.5-4.7); ABSOLUTE MONOCYTES (AUTO) 0.4 10^3/uL (0.1-1.4); ABSOLUTE NEUT (AUTO) 3.6 10^3/uL (1.7-8.2); BASOPHILS % (AUTO) 1.5 % (0-2); EOSINOPHILS % (AUTO) 1.3 % (0-6); HEMATOCRIT 17.9 % (36.0-47.0); LYMPHOCYTES % (AUTO) 34.2 % (13-45); MEAN CORPUSCULAR HEMOGLOBIN 24.6 pg (27.0-33.4); MEAN CORPUSCULAR HGB CONC 30.6 g/dL (32.0-36.0); MEAN CORPUSCULAR VOLUME 80 fl (80-97); MONOCYTES % (AUTO) 5.7 % (3-13); PLATELET COUNT 477 10^3/uL (150-450); RED BLOOD COUNT 2.23 10^6/uL (3.72-5.28); RED CELL DISTRIBUTION WIDTH 23.1 % (11.5-14.0); SEGMENTED NEUTROPHILS % (AUTO) 57.3 % (42-78); TOTAL CELLS COUNTED % (AUTO) 100 %; WHITE BLOOD COUNT 6.3 10^3/uL (4.0-10.5)
[2017-12-08 19:37] LABS: HEMOGLOBIN 5.5 g/dL (12.0-15.5)
[2017-12-08] MEDS ORDERED: NORMAL SALINE 250 ML IV PRN ×2 (19:38)
[2017-12-08] MEDS ORDERED: PANTOPRAZOLE SODIUM 40 MG VIAL IV ONE (19:40)
[2017-12-08 19:41] LABS: INTERNATIONAL RATION (INR) 0.92; PROTHROMBIN TIME 12.9 SEC (11.4-15.4)
[2017-12-08 19:55] LABS: ALANINE AMINOTRANSFERASE 29 U/L (9-52); ALBUMIN 3.6 g/dL (3.5-5.0); ALKALINE PHOSPHATASE 101 U/L (38-126); ANION GAP 15 (5-19); ASPARTATE AMINO TRANSFERASE 23 U/L (14-36); BILIRUBIN,DIRECT 0.2 mg/dL (0.0-0.4); BILIRUBIN,TOTAL 0.2 mg/dL (0.2-1.3); BLOOD UREA NITROGEN 17 mg/dL (7-20); CALCIUM 9.5 mg/dL (8.4-10.2); CARBON DIOXIDE 21 mmol/L (22-30); CHLORIDE 105 mmol/L (98-107); GLUCOSE 153 mg/dL (75-110); POTASSIUM 4.9 mmol/L (3.6-5.0); SODIUM 141.2 mmol/L (137-145); TOTAL PROTEIN 6.6 g/dL (6.3-8.2)
[2017-12-08 20:21] LABS: NT PRO BNP 175 pg/mL (5-900); TROPONIN I < 0.012 ng/mL
[2017-12-09 01:47] VITALS: BP 142/60
--- NOTE | 2017-12-09 10:02 | EKG REPORT ---
SEVERITY:- ABNORMAL ECG - SINUS RHYTHM PROBABLE INFERIOR INFARCT, OLD : Confirmed by: Deidre Hogan 09-Dec-2017 10:02:28
== END 2017-12-09 01:50 | disposition short-term general hospital (02) ==
LOC: ER 17:59
DX: K92.2 Gastrointestinal hemorrhage, unspecified (principal); D64.9 Anemia, unspecified; R42 Dizziness and giddiness; R53.1 Weakness; R06.02 Shortness of breath; R19.7 Diarrhea, unspecified; R10.9 Unspecified abdominal pain; I10 Essential (primary) hypertension; E11.9 Type 2 diabetes mellitus without complications; Z88.5 Allergy status to narcotic agent; Z88.6 Allergy status to analgesic agent
CPT/HCPCS: 93005; 99291; 86900; 86901; 36415; 36430; 86850; 85025; 85610; 82272; 80053; 84484; 86920; 83880; 71045; 93010; P9016

== ENCOUNTER 2018-03-26 08:36 | Outpatient (CLI) | payer MEDICARE, MEDICAID ==
[2018-03-26] MEDS ORDERED: NORMAL SALINE 250 ML IV PRN (08:52)
[2018-03-26] MEDS ORDERED: FERRIC CARBOXYMALTOSE 750 MG in NORMAL SALINE 250 ML IV PRN (08:53)
[2018-03-26 09:37] VITALS: BP 115/70
== END 2018-03-26 10:40 | disposition home or self-care (01) ==
LOC: II 08:36 → 5TH 08:47 → II 10:40
PROVIDERS: ATTEND Internal Medicine
PROC: 3E02340 Introduction of Influenza Vaccine into Muscle, Percutaneous Approach (ICD-10-PCS; principal; 2018-03-26)
PROC: 3E033GC Introduction of Other Therapeutic Substance into Peripheral Vein, Percutaneous Approach (ICD-10-PCS; 2018-03-26)
DX: D50.8 Other iron deficiency anemias (principal); K90.9 Intestinal malabsorption, unspecified; Z23 Encounter for immunization
CPT/HCPCS: 90686; 96367; 96372; G0008; J7050; J1439; 90471; 96374

== ENCOUNTER 2018-04-02 08:44 | Outpatient (CLI) | payer MEDICARE, MEDICAID ==
[~2018-04-02 08:44] MED LIST: FERRIC CARBOXYMALTOSE 750 MG in NORMAL SALINE 250 ML IV PRN; NORMAL SALINE 250 ML IV PRN
[2018-04-02 09:51] VITALS: BP 126/67
== END 2018-04-02 10:42 | disposition home or self-care (01) ==
LOC: II 08:44 → 5TH 09:36 → II 10:42
PROVIDERS: ATTEND Internal Medicine
PROC: 3E033GC Introduction of Other Therapeutic Substance into Peripheral Vein, Percutaneous Approach (ICD-10-PCS; principal; 2018-04-02)
DX: D50.8 Other iron deficiency anemias (principal); K90.9 Intestinal malabsorption, unspecified
CPT/HCPCS: 96367; J7050; J1439; 96365

== ENCOUNTER → 2019-01-01 | Outpatient (CLI) | payer MEDICARE, MEDICAID ==
--- NOTE | 2019-01-01 10:32 | RADIOLOGY REPORT (SQ) ---
EXAM DESCRIPTION: CT CHEST WITHOUT COMPLETED DATE/TIME: 01/01/2019 10:12 am REASON FOR STUDY: (R06.02)SHORTNESS OF BREATH R06.02 SHORTNESS OF BREATH F17.210 NICOTINE DEPENDEN CE, CIGARETTES, UNCOMPLICATED COMPARISON: Thyroid ultrasound dated 11/15/2018, chest x-ray dated 12/08/2017 TECHNIQUE: CT scan performed of the chest without intravenous contrast. Images reviewed with lung, soft tissue and bone windows. Reconstructed coronal and sagittal MPR images reviewed. All images st ored on PACS. All CT scanners at this facility use dose modulation, iterative reconstruction, and/or weight based d osing when appropriate to reduce radiation dose to as low as reasonably achievable (ALARA). [facility]: Dose Right [facility]: CareDose [facility]: Dose Right [facility]: Teradose 4D [facility]: [employer] RADIATION DOSE: CT Rad equipment meets quality standard of care and radiation dose reduction techniq ues were employed. CTDIvol: 9.5 mGy. DLP: 309 mGy-cm. mGy. LIMITATIONS: No technical limitations. FINDINGS: LUNGS AND PLEURA: No masses, infiltrates, or pneumothorax. No pleural effusions or pleura l calcifications. HILAR AND MEDIASTINAL STRUCTURES: No identified masses or abnormal nodes. No obvious aneurysm. HEART AND VASCULAR STRUCTURES: No aneurysm. No pericardial effusion. UPPER ABDOMEN: No significant findings. Limited exam. THYROID AND OTHER SOFT TISSUES: Substernal goiter. BONES: No significant finding. HARDWARE: None in the chest. OTHER: No other significant findings. IMPRESSION: Substernal goiter. No other significant findings in the chest. TECHNICAL DOCUMENTATION: JOB ID: [id number] Quality ID # [id number]: Final reports with documentation of one or more dose reduction techniques (e.g., Au tomated exposure control, adjustment of the mA and/or kV according to patient size, use of iterative reconstruction technique) 2010 [employer]- All Rights Reserved Reading location - IP/workstation name: [email or web address]
== END ==
LOC: RAD 09:45
PROVIDERS: ATTEND Physician Assistant
DX: F17.210 Nicotine dependence, cigarettes, uncomplicated (principal); R06.02 Shortness of breath
CPT/HCPCS: 71250

== ENCOUNTER 2019-02-21 17:17 | Emergency (ER) | payer MEDICARE, MEDICAID ==
[2019-02-21 18:00] LABS: ABSOLUTE EOSINOPHILS # (AUTO) 0.1 10^3/uL (0.0-0.6); ABSOLUTE LYMPHOCYTES (AUTO) 1.7 10^3/uL (0.5-4.7); ABSOLUTE MONOCYTES (AUTO) 0.5 10^3/uL (0.1-1.4); ABSOLUTE NEUT (AUTO) 4.6 10^3/uL (1.7-8.2); BASOPHILS % (AUTO) 0.4 % (0-2); EOSINOPHILS % (AUTO) 1.5 % (0-6); HEMATOCRIT 31.9 % (36.0-47.0); HEMOGLOBIN 10.7 g/dL (12.0-15.5); MEAN CORPUSCULAR HEMOGLOBIN 35.7 pg (27.0-33.4); MEAN CORPUSCULAR HGB CONC 33.4 g/dL (32.0-36.0); MEAN CORPUSCULAR VOLUME 107 fl (80-97); MONOCYTES % (AUTO) 7.7 % (3-13); PLATELET COUNT 486 10^3/uL (150-450); RED BLOOD COUNT 2.99 10^6/uL (3.72-5.28); RED CELL DISTRIBUTION WIDTH 18.1 % (11.5-14.0); SEGMENTED NEUTROPHILS % (AUTO) 65.4 % (42-78); TOTAL CELLS COUNTED % (AUTO) 100 %
[2019-02-21 18:19] LABS: ALBUMIN 4.2 g/dL (3.5-5.0); ALKALINE PHOSPHATASE 132 U/L (38-126); ANION GAP 9 (5-19); ASPARTATE AMINO TRANSFERASE 38 U/L (14-36); BILIRUBIN,DIRECT 0.2 mg/dL (0.0-0.4); BILIRUBIN,TOTAL 0.4 mg/dL (0.2-1.3); BLOOD UREA NITROGEN 25 mg/dL (7-20); CALCIUM 9.4 mg/dL (8.4-10.2); CARBON DIOXIDE 25 mmol/L (22-30); CHLORIDE 101 mmol/L (98-107); GLUCOSE 314 mg/dL (75-110); POTASSIUM 5.4 mmol/L (3.6-5.0); TOTAL PROTEIN 7.7 g/dL (6.3-8.2)
[2019-02-21] MEDS ORDERED: NORMAL SALINE 1000 ML 1,000 ML IV ONE (18:22)
--- NOTE | 2019-02-21 18:24 | ER Document Report ---
ED General - General Chief Complaint: Abdominal Pain Stated Complaint: WEAKNESS Time Seen by Provider: 02/21/19 17:48 Primary Care Provider: PHILLIP CHAO MD [Primary Care Provider] - 02/24/19 Information source: Patient Notes: Patient presents complaining of weakness and shortness of breath that started yesterday. Patient denies any chest pain symptoms. Patient states she had been taking metformin up until 2 weeks ago and then was switched over to Jardiance. Patient states that she had diarrhea with the metformin and since stopping that medication she has had the constipation. Patient states that she had nausea and vomiting x2 episodes yesterday. Patient attributes her nausea to constipation. Patient reports lower abdominal pain for the past 3 or 4 days. Patient denies any fever. Patient does report urinary frequency but states that this is coincided with the start of taking Jardiance. Patient states that she has small dark stools daily over the past 4 days and then today had a normal large bowel movement. Patient states that it was difficult to pass bowel movement and that when she wiped she noticed blood on the tissue. Patient does have a long history of GI bleed and when she has felt weak in the past it is because she has been anemic. 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 Patient is concerned that she may be anemic tonight. TRAVEL OUTSIDE OF THE [place] IN LAST 30 DAYS: No - HPI Onset: Yesterday Onset/Duration: Gradual Quality of pain: Achy Pain Level: 2 Associated symptoms: Nausea, Vomiting, Shortness of breath, Weakness. denies: Chest pain, Nonproductive cough, Productive cough, Fever Exacerbated by: Denies Relieved by: Denies Similar symptoms previously: Yes Recently seen / treated by doctor: No - Related Data Allergies/Adverse Reactions: propoxyphene napsylate [From Darvocet-N 100] Allergy (Unknown, Verified 12/08/17 17:59) aspirin Allergy (Verified 12/08/17 17:59) coffee (Coffea arabica) [Coffee] Adverse Reaction (Intermediate, Verified 12/08/17 17:59) vomitting Past Medical History - General Information source: Patient - Social History Smoking Status: Never Smoker Frequency of alcohol use: None Drug Abuse: None Occupation: None Lives with: Alone Family History: Reviewed & Not Pertinent, CAD, CVA, Hypertension Patient has suicidal ideation: No Patient has homicidal ideation: No - Past Medical History Cardiac Medical History: Reports: Hx Heart Attack, Hx Hypercholesterolemia, Hx Hypertension Pulmonary Medical History: Reports: Hx Bronchitis, Hx Pneumonia Denies: Hx Tuberculosis Neurological Medical History: Denies: Hx Seizures Endocrine Medical History: Reports: Hx Diabetes Mellitus Type 2 Renal/ Medical History: Denies: Hx Peritoneal Dialysis GI Medical History: Reports: Hx Gastritis, Hx Ulcer, Other - 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 denies: Fever, Recent illness EENT: No symptoms reported Cardiovascular: No symptoms reported. denies: Chest pain, Palpitations Respiratory: Short of breath. denies: Cough Gastrointestinal: Abdominal pain, Nausea, Vomiting, Constipation, Other - Blood after passing large difficult bowel movement Genitourinary: Frequency. denies: Dysuria Female Genitourinary: No symptoms reported Musculoskeletal: No symptoms reported. denies: Back pain Skin: No symptoms reported Hematologic/Lymphatic: No symptoms reported Neurological/Psychological: No symptoms reported Physical Exam - Vital signs Vitals: Resp Pulse Ox 17 94 02/21/19 17:31 02/21/19 17:31 - General General appearance: Appears well, Alert In distress: None - HEENT Head: Normocephalic, Atraumatic Eyes: Normal Conjunctiva: Normal Nasal: Normal Mouth/Lips: Normal Neck: Normal, Supple. No: Lymphadenopathy - Respiratory Respiratory status: No respiratory distress Chest status: Nontender Breath sounds: Normal. No: Rales, Rhonchi, Stridor, Wheezing Chest palpation: Normal - Cardiovascular Rhythm: Regular. No: Tachycardia Heart sounds: S1 appreciated, S2 appreciated - Abdominal Inspection: Obese Distension: No distension Bowel sounds: Normal Tenderness: Tender - Tenderness across upper abdomen Organomegaly: No organomegaly - Rectal Stool: Heme positive, See lab result Hemorrhoids: External Notes: Brown-colored stool, no obvious blood, although guaiac positive - Back Back: Normal, Nontender. No: CVA tenderness - Extremities General upper extremity: Normal inspection, Normal ROM General lower extremity: Normal inspection, Normal ROM - Neurological Neuro grossly intact: Yes Cognition: Normal [place] Coma Scale Eye Opening: Spontaneous [place] Coma Scale Verbal: Oriented [place] Coma Scale Motor: Obeys Commands Radhika Coma Scale Total: 15 - Psychological Associated symptoms: Normal affect, Normal mood - Skin Skin Temperature: Warm Skin Moisture: Dry Skin Color: Normal Course - Re-evaluation Re-evalutation: 02/21/19 20:11 Patient states that she has had problems with small intestinal bleeding in the past and was concerned that she may be having problems with bleeding as she has been feeling weak. Patient with an H&H of 10 and 31 which is better than her baseline H&H. Patient is hypotensive here today. Protonix bolus started. Consulted with patient's primary doctor Dr. Chao who who states that patient may need to transfer to facility that has GI services on if we are concerned about active GI bleeding. 02/21/19 20:[address] Mercer, discussed patient presentation as well as conversation with patient's primary doctor. Dr. Mercer recommends ordering CT imaging with IV contrast to evaluate for possible diverticulitis. Patient's blood pressure has improved after initiation of IV fluids. 02/21/19 22:32 RN states that she has completed consent form for CT imaging. CT states that they called shortly after the order was placed stating that they were ready for the patient CT. digital account supervisor advised that patient can go over for CT scan. 02/21/19 23:52 Patient complains of abdominal fullness and feeling as though she is still constipated. Patient's vital signs stable at this time. Will repeat troponin test and road test patient to see how she feels. Patient denies feeling weak at this time. Patient denies any chest pain or shortness of breath. Patient denies any nausea or vomiting. Patient had a CT scan of the abdomen and pelvis without any acute findings. Patient upon further questioning and review of her history of symptoms and presentation today states that she feels like her symptoms are due to constipation. Patient states that she had several small dark-colored bowel movements each day for the past 4 days and then today she had a large difficult to pass brown-colored bowel movement. Patient states there was no blood in the stool but when she wiped there was a small amount of blood. Patient does have external hemorrhoids and states that her bowel movement was large and she feels that the blood was likely result of having a difficult to pass stool. Patient since then has not had any dark-colored stools or bleeding. Discussed with patient possibility that her feelings of weakness could be attributed to the fact that she was dehydrated. Discussed with patient the improvement of her vital signs after administration of IV fluids. Patient still with concentrated urinalysis after the first liter of IV fluids therefore an additional bolus of 500 mL's normal saline will be started. 02/22/19 00:17 Discussed additional HPI information with Dr. Mercer who agrees with current plan of care. Does recommend consultation with patient's primary doctor again once delta troponin has been resulted. 02/22/19 01:32 Speaking with patient, patient states that she has noticed since starting Jardiance 2 weeks ago that she has been voiding very frequently. This is a side effect of the medication and it can cause hypotension. After patient was rehydrated her vital signs did improve. Consulted again with her primary doctor Dr. Chao about the course of her stay here [facility] and concern that her symptoms may be attributed to starting this new medication which caused her to to become dehydrated and hypotensive causing her to feel weak. Suspect that patient likely had bleeding from her hemorrhoids after a difficult to pass bowel movement as opposed to active GI bleed at this time, although this is a consi deration. Dr. Chao agrees that patient can be discharged home and will follow- up in his office first thing Sunday morning. Dr. Chao does recommend discontinuing her Jardiance. Discussed plan of care with patient and patient is agreeable at this time. Discussed worsening symptoms that she should return immediately for. - Vital Signs Vital signs: Temp Pulse Resp BP Pulse Ox 97.9 F 87 17 131/69 H 100 02/22/19 02:10 02/22/19 02:10 02/22/19 02:10 02/22/19 02:10 02/22/19 02:10 - Laboratory Result Diagrams: 02/21/19 17:42 02/21/19 17:42 Laboratory results interpreted by me: 02/21/19 02/21/19 02/21/19 17:42 17:42 20:22 RBC 2.99 L Hgb 10.7 L Hct 31.9 L MCV 107 H MCH 35.7 H RDW 18.1 H Plt Count 486 H Sodium 134.6 L Potassium 5.4 H BUN 25 H Glucose 314 H AST 38 H Alkaline Phosphatase 132 H Urine Glucose (UA) >=500 H Urine Ketones TRACE H Ur Leukocyte Esterase SMALL H 02/22/19 01:36 Labs- Entire Visit 02/21/19 02/21/19 02/21/19 17:42 17:42 17:42 WBC 7.0 RBC 2.99 L Hgb 10.7 L Hct 31.9 L MCV 107 H MCH 35.7 H MCHC 33.4 RDW 18.1 H Plt Count 486 H Lymph % (Auto) 25.0 Bledsoe % (Auto) 7.7 Eos % (Auto) 1.5 Baso % (Auto) 0.4 Absolute Neuts (auto) 4.6 Absolute Lymphs (auto) 1.7 Absolute Monos (auto) 0.5 Absolute Eos (auto) 0.1 Absolute Basos (auto) 0.0 Seg Neutrophils % 65.4 PT INR APTT VBG pH VBG pCO2 VBG HCO3 VBG Base Excess Sodium 134.6 L Potassium 5.4 H Chloride 101 Carbon Dioxide 25 Anion Gap 9 BUN 25 H Creatinine 0.71 Est GFR ( Amer) > 60 Est GFR (MDRD) Non-Af > 60 Glucose 314 H Calcium 9.4 Total Bilirubin 0.4 Direct Bilirubin 0.2 Neonat Total Bilirubin Not Reportable Neonat Direct Bilirubin Not Reportable Neonat Indirect Bili Not Reportable AST 38 H ALT 21 Alkaline Phosphatase 132 H Troponin I Total Protein 7.7 Albumin 4.2 Lipase 77.4 Urine Color Urine Appearance Urine pH Ur Specific [place] Urine Protein Urine Glucose (UA) Urine Ketones Urine Blood Urine Nitrite Urine Bilirubin Urine Urobilinogen Ur Leukocyte Esterase Urine WBC (Auto) Urine RBC (Auto) Squamous Epi Cells Auto Urine Ascorbic Acid POC Stool Occult Blood Blood Type O POSITIVE Antibody Screen NEGATIVE 02/21/19 02/21/19 02/21/19 17:42 17:42 19:30 WBC RBC Hgb Hct MCV MCH MCHC RDW Plt Count Lymph % (Auto) Bledsoe % (Auto) Eos % (Auto) Baso % (Auto) Absolute Neuts (auto) Absolute Lymphs (auto) Absolute Monos (auto) Absolute Eos (auto) Absolute Basos (auto) Seg Neutrophils % PT 12.7 INR 0.96 APTT 24.2 VBG pH 7.34 VBG pCO2 48.0 VBG HCO3 25.3 VBG Base Excess -0.9 Sodium Potassium Chloride Carbon Dioxide Anion Gap BUN Creatinine Est GFR ( Amer) Est GFR (MDRD) Non-Af Glucose Calcium Total Bilirubin Direct Bilirubin Neonat Total Bilirubin Neonat Direct Bilirubin Neonat Indirect Bili AST ALT Alkaline Phosphatase Troponin I < 0.012 Total Protein Albumin Lipase Urine Color Urine Appearance Urine pH Ur Specific [place] Urine Protein Urine Glucose (UA) Urine Ketones Urine Blood Urine Nitrite Urine Bilirubin Urine Urobilinogen Ur Leukocyte Esterase Urine WBC (Auto) Urine RBC (Auto) Squamous Epi Cells Auto Urine Ascorbic Acid POC Stool Occult Blood Blood Type Antibody Screen 02/21/19 02/21/19 02/22/19 19:49 20:22 00:01 WBC RBC Hgb Hct MCV MCH MCHC RDW Plt Count Lymph % (Auto) Bledsoe % (Auto) Eos % (Auto) Baso % (Auto) Absolute Neuts (auto) Absolute Lymphs (auto) Absolute Monos (auto) Absolute Eos (auto) Absolute Basos (auto) Seg Neutrophils % PT INR APTT VBG pH VBG pCO2 VBG HCO3 VBG Base Excess Sodium Potassium Chloride Carbon Dioxide Anion Gap BUN Creatinine Est GFR ( Amer) Est GFR (MDRD) Non-Af Glucose Calcium Total Bilirubin Direct Bilirubin Neonat Total Bilirubin Neonat Direct Bilirubin Neonat Indirect Bili AST ALT Alkaline Phosphatase Troponin I < 0.012 Total Protein Albumin Lipase Urine Color YELLOW Urine Appearance CLEAR Urine pH 5.0 Ur Specific [place] 1.030 Urine Protein NEGATIVE Urine Glucose (UA) >=500 H Urine Ketones TRACE H Urine Blood NEGATIVE Urine Nitrite NEGATIVE Urine Bilirubin NEGATIVE Urine Urobilinogen NEGATIVE Ur Leukocyte Esterase SMALL H Urine WBC (Auto) 9 Urine RBC (Auto) 1 Squamous Epi Cells Auto 5 Urine Ascorbic Acid NEGATIVE POC Stool Occult Blood POSITIVE Blood Type Antibody Screen - Diagnostic Test Radiology reviewed: Reports reviewed - EKG Interpretation by Me EKG shows normal: Sinus rhythm Rate: Normal When compared to previous EKG there are: No significant change Additional EKG results interpreted by me: 02/22/19 00:[address] elevation, QTc 438 Discharge - Discharge Clinical Impression: Dehydration Hypotension Qualifiers: Hypotension type: unspecified hypotension type Qualified Code(s): I95.9 - Hypotension, unspecified Abdominal pain Qualifiers: Abdominal location: unspecified location Qualified Code(s): R10.9 - Unspecified abdominal pain Hemorrhoids Qualifiers: Hemorrhoid type: unspecified Qualified Code(s): K64.9 - Unspecified hemorrhoids Condition: Stable Disposition: HOME, SELF-CARE Instructions: Abdominal Pain ([facility]), Dehydration ([facility]), Hemorrhoids ([facility]), Hypotension ([facility]) Additional Instructions: Return immediately for any new or worsening symptoms: Worsening abdominal pain, fever, vomiting, rectal bleeding, chest pain, lightheaded dizziness or any concerning symptoms. Followup with Dr. Chao on Sunday morning for recheck. Stop taking the Jardiance as this may be causing her to become dehydrated and feeling weak. Referrals: PHILLIP CHAO MD [Primary Care Provider] - 02/24/19
[2019-02-21 18:39] LABS: INTERNATIONAL RATION (INR) 0.96; PARTIAL THROMBOPLASTIN TIME 24.2 SEC (23.5-35.8); PROTHROMBIN TIME 12.7 SEC (11.4-15.4)
--- NOTE | 2019-02-21 19:03 | RADIOLOGY REPORT (SQ) ---
EXAM DESCRIPTION: ACUTE ABDOMEN SERIES COMPLETED DATE/TIME: 02/21/2019 6:50 pm REASON FOR STUDY: abd pain, sob COMPARISON: Chest CT 01/01/2019 NUMBER OF VIEWS: Four views. TECHNIQUE: Frontal chest, supine abdomen and upright/decubitus abdomen radiographic images acquired. LIMITATIONS: None. FINDINGS: CHEST: Lungs clear of infiltrates. 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 FREE AIR: None. No abnormal gas collections. BOWEL GAS PATTERN: Nonobstructive pattern. No dilated loops or air fluid levels. CALCIFICATIONS: No suspicious calcifications. HARDWARE: None in the abdomen. SOFT TISSUES: No gross mass or suggestion of organomegaly. BONES: No acute fracture. No worrisome bone lesions. OTHER: No other significant finding. IMPRESSION: NO RADIOGRAPHIC EVIDENCE FOR ACUTE ABDOMINAL DISEASE. TECHNICAL DOCUMENTATION: JOB ID: [id number] [employer]- All Rights Reserved Reading location - IP/workstation name: [email or web address]
[2019-02-21 19:40] LABS: VENOUS BLOOD BASE EXCESS -0.9 mmol/L; VENOUS BLOOD HCO3 25.3 mmol/L (20-32); VENOUS BLOOD PH 7.34 (7.30-7.42)
[2019-02-21] MEDS ORDERED: PANTOPRAZOLE SODIUM 40 MG VIAL IV ONE (19:59)
[2019-02-21] MEDS ORDERED: PANTOPRAZOLE SODIUM 40 MG VIAL IV PRN (19:59)
[2019-02-21 20:58] LABS: APPEARANCE,URINE CLEAR; BILIRUBIN,URINE NEGATIVE (NEGATIVE); COLOR,URINE YELLOW; GLUCOSE, URINE >=500 mg/dL (NEGATIVE); KETONES,URINE TRACE mg/dL (NEGATIVE); LEUKOCYTE ESTERASE,URINE SMALL (NEGATIVE); NITRITE,URINE NEGATIVE (NEGATIVE); PROTEIN,URINE NEGATIVE (NEGATIVE); UROBILINOGEN,URINE NEGATIVE mg/dL (<2.0)
--- NOTE | 2019-02-21 23:30 | RADIOLOGY REPORT (SQ) ---
EXAM DESCRIPTION: [facility]: CT ABDOMEN PELVIS WITH IV CONTRAST CLINICAL HISTORY: 69 years Female; lower abd pain, blood in stool TECHNIQUE: CT of the abdomen and pelvis using intravenous contrast. All CT scans at this facility use dose modulation, iterative reconstruction, and/or weight based dosing when appropriate to reduce radiation dose to as low as reasonably achievable. COMPARISON: None. FINDINGS: Abdomen: Liver:No focal lesions. No intrahepatic ductal distention. Gallbladder:Nondistended Pancreas:Within normal limits Spleen:Within normal limits Right kidney:No hydronephrosis. No focal lesion. Left kidney:No hydronephrosis. No focal lesion. Adrenal glands:Within normal limits Vascular structures: Scattered aortic plaque throughout the abdominal aorta. No aneurysm or dissection. No major branch occlusion. Pelvis: Small bowel:No significant distention. Appendix: Not reliably identified. Colon:No distention or acute pericolonic edema. No free intraperitoneal fluid or air. Bones: No acute bone findings. Bladder: Unremarkable. Uterus is not identified. No adnexal enlargement. No pelvic adenopathy. IMPRESSION: 1. No acute findings 2. Atherosclerosis 3. Previous hysterectomy.
[2019-02-21] MEDS ORDERED: NORMAL SALINE 500 ML IV ONE (23:52)
[2019-02-22 02:11] VITALS: BP 131/69
--- NOTE | 2019-02-23 00:31 | EKG REPORT ---
SEVERITY:- ABNORMAL ECG - SINUS RHYTHM PROBABLE INFERIOR INFARCT, AGE INDETERMINATE : Confirmed by: Deidre Hogan 23-Feb-2019 00:30:17
== END 2019-02-22 02:11 | disposition home or self-care (01) ==
LOC: ER 17:17
DX: E86.0 Dehydration (principal); K59.00 Constipation, unspecified; I95.9 Hypotension, unspecified; R19.5 Other fecal abnormalities; K64.4 Residual hemorrhoidal skin tags; R53.1 Weakness; R06.02 Shortness of breath; R11.2 Nausea with vomiting, unspecified; R10.30 Lower abdominal pain, unspecified; R35.0 Frequency of micturition; I10 Essential (primary) hypertension; E11.9 Type 2 diabetes mellitus without complications; Z79.84 Long term (current) use of oral hypoglycemic drugs; Z87.19 Personal history of other diseases of the digestive system; Z88.5 Allergy status to narcotic agent; Z88.8 Allergy status to other drugs, medicaments and biological substances; Z90.49 Acquired absence of other specified parts of digestive tract
CPT/HCPCS: 93005; 99284; 96361; 96365; 96366; 86900; 86901; 36415; 86850; 83690; 85025; 85610; 85730; 80053; 81001; 84484; 82803; 74022; 74177; 93010; C9113; J7030; J7040; S0164

== ENCOUNTER → 2019-10-02 | Outpatient (CLI) | payer MEDICARE, MEDICAID ==
--- NOTE | 2019-10-02 14:31 | RADIOLOGY REPORT (SQ) ---
EXAM DESCRIPTION: FOOT LEFT COMPLETE IMAGES COMPLETED DATE/TIME: 10/02/2019 11:04 am REASON FOR STUDY: M79.672 PAIN IN LEFT FOOT R60.0 LOCALIZED EDEMA M79.672 PAIN IN LEFT FOOT COMPARISON: None. NUMBER OF VIEWS: Three views. TECHNIQUE: AP, lateral and oblique radiographic images acquired of the left foot. LIMITATIONS: None. FINDINGS: MINERALIZATION: Osteopenic BONES: No acute fracture or dislocation. No worrisome bone lesions. JOINTS: Mild joint space narrowing and bony spurring 1st metatarsophalangeal joint SOFT TISSUES: Diffuse forefoot soft tissue swelling. No soft tissue gas or radiopaque foreign body OTHER: Small plantar calcaneal spur IMPRESSION: Forefoot soft tissue swelling. No fracture TECHNICAL DOCUMENTATION: JOB ID: [id number] 2010 [employer]- All Rights Reserved Reading location - IP/workstation name: [email or web address]
--- NOTE | 2019-10-02 16:06 | RADIOLOGY REPORT (SQ) ---
EXAM DESCRIPTION: ARTERIAL LOWER EXTREM BILAT IMAGES COMPLETED DATE/TIME: 10/02/2019 3:54 pm REASON FOR STUDY: BLE PAIN R60.0 LOCALIZED EDEMA M79.606 PAIN IN LEG, UNSPECIFIED COMPARISON: None. TECHNIQUE: Dynamic and static gage scale and color images acquired of the lower extremity arteries. Additional selected spectral images recorded. LIMITATIONS: None. FINDINGS: RIGHT LEG: INFLOW ARTERIES: Normal, no obstruction evident. FEMORAL ARTERIES:Triphasic waveforms. Normal, no velocity elevation to suggest focal stenosis. Normal color Doppler evaluation. No aneurysm. POPLITEAL ARTERY:Triphasic waveforms. Normal, no velocity elevation to suggest focal stenosis. Normal color Doppler evaluation. No aneurysm. PATENT TIBIOPERONEAL TRUNK AND 3 VESSEL RUNOFF: Yes, normal vessels. OTHER: No other significant finding. LEFT LEG: INFLOW ARTERIES: Normal, no obstruction evident. FEMORAL ARTERIES:Triphasic waveforms. Normal, no velocity elevation to suggest focal stenosis. Normal color Doppler evaluation. No aneurysm. POPLITEAL ARTERY:Triphasic waveforms. Normal, no velocity elevation to suggest focal stenosis. Normal color Doppler evaluation. No aneurysm. PATENT TIBIOPERONEAL TRUNK AND 3 VESSEL RUNOFF: Yes, normal vessels. OTHER: No other significant finding. IMPRESSION: NORMAL BILATERAL LOWER EXTREMITY ARTERIAL DOPPLER. TECHNICAL DOCUMENTATION: JOB ID: [id number] 2010 [employer]- All Rights Reserved Reading location - IP/workstation name: [email or web address]
== END ==
LOC: SP 10:39
PROVIDERS: ATTEND Physician Assistant
DX: R60.0 Localized edema (principal); M77.32 Calcaneal spur, left foot; M79.672 Pain in left foot; R68.89 Other general symptoms and signs
CPT/HCPCS: 93925

== ENCOUNTER 2020-01-13 08:11 | Outpatient (CLI) | payer MEDICARE, MEDICAID ==
[~2020-01-13 08:11] MED LIST changes: -FERRIC CARBOXYMALTOSE 750 MG in NORMAL SALINE 250 ML IV PRN; +IRON DEXTRAN COMPLEX 25 MG in SYRINGE, DISPOSABLE, 1 EACH IV PRN; +IRON DEXTRAN COMPLEX 775 MG in NORMAL SALINE 500 ML IV PRN
[2020-01-13 08:33] VITALS: BP 136/59
== END 2020-01-13 13:23 | disposition home or self-care (01) ==
LOC: II 08:11 → 5TH 08:13 → II 13:23
PROVIDERS: ATTEND Internal Medicine
DX: D50.9 Iron deficiency anemia, unspecified (principal); K90.9 Intestinal malabsorption, unspecified
CPT/HCPCS: 96365; 96366; 96375; J1750; J7040; J3490

== ENCOUNTER 2020-01-20 08:03 | Outpatient (CLI) | payer MEDICARE, MEDICAID ==
[~2020-01-20 08:03] MED LIST changes: -IRON DEXTRAN COMPLEX 25 MG in SYRINGE, DISPOSABLE, 1 EACH IV PRN; -IRON DEXTRAN COMPLEX 775 MG in NORMAL SALINE 500 ML IV PRN; +IRON DEXTRAN COMPLEX 800 MG in NORMAL SALINE 500 ML IV PRN
[2020-01-20 08:28] VITALS: BP 128/69
== END 2020-01-20 12:30 | disposition home or self-care (01) ==
LOC: 5TH 08:03 → II 08:03
PROVIDERS: ATTEND Internal Medicine
DX: D50.9 Iron deficiency anemia, unspecified (principal); K90.9 Intestinal malabsorption, unspecified
CPT/HCPCS: 96365; 96366; J1750; J7040

== ENCOUNTER → 2020-02-10 | Outpatient (CLI) | payer MEDICARE, MEDICAID ==
--- NOTE | 2020-02-10 13:18 | WOMENS IMAGING REPORT ---
EXAM DESCRIPTION: BILAT SCREENING MAMMO W/CAD IMAGES COMPLETED DATE/TIME: 02/10/2020 11:37 am REASON FOR STUDY: Z12.31 ENCNTR SCREEN MAMMOGRAM FOR MALIGNANT NEOPLASM OF BREAST Z12.31 ENCNTR SCR EEN MAMMOGRAM FOR MALIGNANT NEOPLASM OF BEN COMPARISON: 06/12/2017. EXAM PARAMETERS: Standard craniocaudal and mediolateral oblique views of each breast recorded using digital acquisition. Read with the assistance of CAD. .[facility] - [employer] External Version 9.2 LIMITATIONS: None. FINDINGS: Findings present which are benign by mammographic criteria. No suspicious masses, calcifi cations or architectural distortion. Pertinent benign findings: Stable benign calcifications. Benign mammographic findings may include one or more of the following: Smooth masses, popcorn/rim/co arse calcifications, asymmetries, post-procedure changes, and lesions with long-standing stability. IMPRESSION: BENIGN MAMMOGRAPHIC FINDINGS. BIRADS 2 BREAST DENSITY: b. There are scattered areas of fibroglandular density. BIRAD: ASSESSMENT: 2 BENIGN FINDING(S) RECOMMENDATION: ROUTINE SCREENING COMMENT: The patient has been notified of the results by letter per SA requirements. Additional no tification policies are in place for contacting patient with suspicious or incomplete findings. Quality ID #[id number]: The [employer] recommends an annual screening mammogram for women aged 40 years or over. This facility utilizes a reminder system to ensure that all patients receive reminder letters, and/or direct phone calls for appointments. This includes reminders for routine scr eening mammograms, diagnostic mammograms, or other Breast Imaging Interventions when appropriate. Th is patient will be placed in the appropriate reminder system. TECHNICAL DOCUMENTATION: FINDING NUMBER: (1) ASSESSMENT: (1) JOB ID: [id number] 2010 [employer]- All Rights Reserved Reading location - IP/workstation name: [email or web address]
== END ==
LOC: WI 11:00
PROVIDERS: ATTEND Physician Assistant
DX: Z12.31 Encounter for screening mammogram for malignant neoplasm of breast (principal)
CPT/HCPCS: 77067

== ENCOUNTER 2020-04-13 08:13 | Day surgery (SDC) | payer MEDICARE, MEDICAID ==
[~2020-04-13 08:13] MED LIST changes: +BUPIVACAINE HCL 0.75% INJ/PF (7.5 MG/1 ML) 10 ML SDV OS PRN; +CHONDR SU A NA/HYALUR INTRAOC KIT (SURGICARE) ONE; +EPINEPHRINE INJ/PF 1 MG/1 ML AMPULE ONE; -IRON DEXTRAN COMPLEX 800 MG in NORMAL SALINE 500 ML IV PRN; +KETOROLAC TROMETHAMINE 0.45% 4 DROP/0.4 ML DROPERETTE OS PRN; +LIDOCAINE 1% INJ-PF (10 MG/ML) 30 ML SDV ONE; +LIDOCAINE 4% INJ/PF (40 MG/ML) 5 ML AMPUL OS PRN; -NORMAL SALINE 250 ML IV PRN
[2020-04-13] MEDS ORDERED: FENTANYL CITRATE INJ/PF 100 MCG/2 ML AMPUL ONE (08:57)
[2020-04-13] MEDS ORDERED: ONDANSETRON HCL INJ/PF 4 MG/2 ML SDV ONE (08:57)
[2020-04-13] MEDS ORDERED: MIDAZOLAM 2 MG/2 ML INJ ONE (08:57)
[2020-04-13] MEDS: TETRACAINE HCL 0.5% OPH SOLN 4 ML OS PRN ×3 (08:58→09:47)
[2020-04-13] MEDS: BESIFLOXACIN HCL 0.6% OPH SUSP 5 ML BOTTLE OS PRN ×4 (08:58→10:11)
[2020-04-13] MEDS: CYCLOPENTOLATE 0.2%/PHENYLEPHRINE 1% OPH SOLN 2 ML OS PRN ×3 (08:58→09:18)
[2020-04-13] MEDS: TROPICAMIDE 1% OPH SOLN 15 ML OS PRN ×3 (08:58→09:18)
[2020-04-13] MEDS: PREDNISOLONE ACETATE 1% OPH SUSP 5 ML OS PRN ×2 (10:11)
[2020-04-13] MEDS: DORZOLAMIDE HCL 2%/TIMOLOL MALEAT 0.5% OPH SOLN 10 ML OS PRN ×2 (10:11)
--- NOTE | 2020-04-13 13:12 | Operative Report ---
Operative Report-[facility] Operative Report: DATE OF SURGERY: 04/13/2020 PREOPERATIVE DIAGNOSIS: CATARACT, LEFT EYE. POSTOPERATIVE DIAGNOSIS: CATARACT, LEFT EYE. PROCEDURE PERFORMED: PHACOEMULSIFICATION WITH POSTERIOR CHAMBER INTRAOCULAR LENS, LEFT EYE. Intraocular Lens Model : MX 60 E 21.5 Total Phaco Time: 9.06 CDE SURGEON: KAMLESH WINKLER MD ANESTHESIA: TOPICAL WITH MAC. INDICATIONS FOR SURGERY: Difficultly driving at night PROCEDURE: The patient was brought to the Operating Room and placed on the operative table. Following tetracaine drops, topical anesthesia was administered. This consisted of instrument wipe pledgets soaked in a solution of 4% Xylocaine mixed with 0.75% Marcaine in a 1:2 ratio. A 2 x 1 cm pledget was placed in the superior fornix. A 1 x 1 cm pledget was placed in the inferior fornix. The eye was patched shut for 5 minutes. The patch was removed. The eye was sterilely prepped and draped in the usual manner. Lid speculum was placed in the eye. The pledgets were removed. 4-0 black silk sutures were placed around the superior and the inferior rectus muscles to be used as traction. A conjunctival peritomy was made at the 10 o'clock position. Hemostasis was obtained with bipolar cautery. A posterior limbal groove was created using a crescent knife and dissected anteriorly towards the cornea. A sharp point blade was used to create a paracentesis site at the 2 o'clock position. 0.2 cc non preserved Lidocaine was injected into the anterior chamber. A 2.4 mm keratome was used to enter the anterior chamber through the groove. Viscoelastic was injected into the anterior chamber. An anterior capsulotomy was performed using Utrata forceps in a capsulorrhexis fashion. Hydrodissection and hydrodelineation were performed. Phacoemulsification was performed in [id number] technique. Following this, the I/A unit was used to remove residual cortex. Viscoelastic was injected into the capsular bag. The Intraocular lens was placed in the capsular bag. The I/A unit was used to remove residual viscoelastic. The wound was seen to be watertight under high and low pressure, and no sutures were placed. The intraocular lens was well centered. The pressure was adjusted in the eye to normal pressure. The 4-0 black silk sutures and lid speculum were removed. The eye was shielded after Besivance,prednisolone, and Cosopt drops were placed. The patient tolerated the procedure well and was sent to the Recovery Room in good condition.
== END 2020-04-13 10:46 | disposition home or self-care (01) ==
LOC: SC 08:13
PROVIDERS: ATTEND Ophthalmology
DX: H25.812 Combined forms of age-related cataract, left eye (principal); E11.3393 Type 2 diabetes mellitus with moderate nonproliferative diabetic retinopathy without macular edema, bilateral; H04.123 Dry eye syndrome of bilateral lacrimal glands; H52.4 Presbyopia; D64.89 Other specified anemias; Z79.4 Long term (current) use of insulin; Z87.891 Personal history of nicotine dependence; E11.36 Type 2 diabetes mellitus with diabetic cataract; I10 Essential (primary) hypertension; E78.00 Pure hypercholesterolemia, unspecified; E03.9 Hypothyroidism, unspecified; M19.90 Unspecified osteoarthritis, unspecified site
CPT/HCPCS: 66984; 82962; V2632; J2250; J3490 ×5; A9270; J0171; J2405; 142; J3010

== ENCOUNTER 2020-05-04 07:21 | Day surgery (SDC) | payer MEDICARE, MEDICAID ==
[~2020-05-04 07:21] MED LIST changes: +BUPIVACAINE HCL 0.75% INJ/PF (7.5 MG/1 ML) 10 ML SDV OD PRN; -BUPIVACAINE HCL 0.75% INJ/PF (7.5 MG/1 ML) 10 ML SDV OS PRN; +KETOROLAC TROMETHAMINE 0.45% 4 DROP/0.4 ML DROPERETTE OD PRN; -KETOROLAC TROMETHAMINE 0.45% 4 DROP/0.4 ML DROPERETTE OS PRN; +LIDOCAINE 4% INJ/PF (40 MG/ML) 5 ML AMPUL OD PRN; -LIDOCAINE 4% INJ/PF (40 MG/ML) 5 ML AMPUL OS PRN
[2020-05-04] MEDS: BESIFLOXACIN HCL 0.6% OPH SUSP 5 ML BOTTLE OD PRN ×4 (07:41→08:46)
[2020-05-04] MEDS: CYCLOPENTOLATE 0.2%/PHENYLEPHRINE 1% OPH SOLN 2 ML OD PRN ×3 (07:41→07:54)
[2020-05-04] MEDS: TROPICAMIDE 1% OPH SOLN 15 ML OD PRN ×3 (07:41→07:54)
[2020-05-04] MEDS: TETRACAINE HCL 0.5% OPH SOLN 4 ML OD PRN ×3 (07:41→08:17)
[2020-05-04] MEDS ORDERED: ONDANSETRON HCL INJ/PF 4 MG/2 ML SDV ONE (08:26)
[2020-05-04] MEDS ORDERED: MIDAZOLAM 2 MG/2 ML INJ ONE (08:27)
[2020-05-04] MEDS ORDERED: FENTANYL CITRATE INJ/PF 100 MCG/2 ML AMPUL ONE (08:27)
[2020-05-04] MEDS: PREDNISOLONE ACETATE 1% OPH SUSP 5 ML OD PRN ×2 (08:46)
[2020-05-04] MEDS: DORZOLAMIDE HCL 2%/TIMOLOL MALEAT 0.5% OPH SOLN 10 ML OD PRN ×2 (08:46)
--- NOTE | 2020-05-04 11:45 | Operative Report ---
Operative Report-[facility] Operative Report: DATE OF SURGERY: 05/04/2020 PREOPERATIVE DIAGNOSIS: CATARACT, RIGHT EYE. POSTOPERATIVE DIAGNOSIS: CATARACT, RIGHT EYE. PROCEDURE PERFORMED: PHACOEMULSIFICATION WITH POSTERIOR CHAMBER INTRAOCULAR LENS, RIGHT EYE. Intraocular Lens Model : MX60E 21.5 Total Phaco Time: 11.25 CDE SURGEON: KAMLESH WINKLER MD ANESTHESIA: TOPICAL WITH MAC. INDICATIONS FOR SURGERY: Blurred vision for watching TV. PROCEDURE: The patient was brought to the Operating Room and placed on the operative table. Following tetracaine drops, topical anesthesia was administered. This consisted of instrument wipe pledgets soaked in a solution of 4% Xylocaine mixed with 0.75% Marcaine in a 1:2 ratio. A 2 x 1 cm pledget was placed in the superior fornix. A 1 x 1 cm pledget was placed in the inferior fornix. The eye was patched shut for 5 minutes. The patch was removed. The eye was sterilely prepped and draped in the usual manner. Lid speculum was placed in the eye. The pledgets were removed. 4-0 black silk sutures were placed around the superior and the inferior rectus muscles to be used as traction. A conjunctival peritomy was made at the 10 o'clock position. Hemostasis was obtained with bipolar cautery. A posterior limbal groove was created using a crescent knife and dissected anteriorly towards the cornea. A sharp point blade was used to create a paracentesis site at the 2 o'clock position. 0.2 cc non preserved Lidocaine was injected into the anterior chamber. A 2.4 mm keratome was used to enter the anterior chamber through the groove. Viscoelastic was injected into the anterior chamber. An anterior capsulotomy was performed using Utrata forceps in a capsulorrhexis fashion. Hydrodissection and hydrodelineation were performed. Phacoemulsification was performed in [id number] technique. Following this, the I/A unit was used to remove residual cortex. Viscoelastic was injected into the capsular bag. The Intraocular lens was placed in the capsular bag. The I/A unit was used to remove residual viscoelastic. The wound was seen to be watertight under high and low pressure, and no sutures were placed. The intraocular lens was well centered. The pressure was adjusted in the eye to normal pressure. The 4-0 black silk sutures and lid speculum were removed. The eye was shielded after Besivance. prednisolone, and Cosopt drops were placed. The patient tolerated the procedure well and was sent to the Recovery Room in good condition.
== END 2020-05-04 09:20 | disposition home or self-care (01) ==
LOC: SC 07:21
PROVIDERS: ATTEND Ophthalmology
DX: H25.811 Combined forms of age-related cataract, right eye (principal); H43.812 Vitreous degeneration, left eye; Z96.1 Presence of intraocular lens; E11.36 Type 2 diabetes mellitus with diabetic cataract; Z79.4 Long term (current) use of insulin; I11.0 Hypertensive heart disease with heart failure; I25.2 Old myocardial infarction; E78.00 Pure hypercholesterolemia, unspecified; E03.9 Hypothyroidism, unspecified; M19.90 Unspecified osteoarthritis, unspecified site; D64.9 Anemia, unspecified; Z87.891 Personal history of nicotine dependence; J44.9 Chronic obstructive pulmonary disease, unspecified
CPT/HCPCS: 66984; 82962; V2632; J2250; J3490 ×5; A9270; J0171; J2405; J3010

== ENCOUNTER → 2020-05-25 | Outpatient (CLI) | payer MEDICARE, MEDICAID ==
--- NOTE | 2020-05-25 13:07 | RADIOLOGY REPORT (SQ) ---
EXAM DESCRIPTION: CT BONE LENGTH IMAGES COMPLETED DATE/TIME: 05/25/2020 12:49 pm REASON FOR STUDY: (Q72.819)CONGENITAL SHORTENING OF UNSPECIFIED LOWER LIMB Q72.819 CONGENITAL SHORT ENING OF UNSPECIFIED LOWER LIMB COMPARISON: None. TECHNIQUE: CT scanogram of the bilateral lower extremities is performed including pelvis to ankles. Measurements of femur, tibia, and entire lower extremities performed by the radiologist and saved to PACS. All CT scanners at this facility use dose modulation, iterative reconstruction, and/or weight based d osing when appropriate to reduce radiation dose to as low as reasonably achievable (ALARA). [facility]: Dose Right [facility]: CareDose [facility]: Dose Right [facility]: Teradose 4D [facility]: [employer] RADIATION DOSE: mGy. LIMITATIONS: None. FINDINGS: RIGHT: FEMUR: 41.7 cm. TIBIA: 34 cm. TOTAL RIGHT LOWER EXTREMITY LENGTH (INCLUDES THE KNEE JOINT SPACE): 75.2 cm. LEFT: FEMUR: 41.9 cm. TIBIA: 33.8 cm. TOTAL LEFT LOWER EXTREMITY LENGTH (INCLUDES THE KNEE JOINT SPACE): 75.5 cm. IMPRESSION: LEG LENGTH MEASUREMENTS DETAILED ABOVE. TECHNICAL DOCUMENTATION: JOB ID: [id number] Quality ID # [id number]: Final reports with documentation of one or more dose reduction techniques (e.g., Au tomated exposure control, adjustment of the mA and/or kV according to patient size, use of iterative reconstruction technique) 2010 [employer]- All Rights Reserved Reading location - IP/workstation name: [email or web address]
== END ==
LOC: RAD 12:42
PROVIDERS: ATTEND Podiatrist Foot & Ankle Surgery
DX: Q72 Reduction defects of lower limb (principal)
CPT/HCPCS: 77073